=== PATIENT | female | born 1955 | race Caucasian/White ===

== ENCOUNTER 2025-01-11 20:22 | Inpatient (IN) | payer OTHER, MEDICAID ==
[~2025-01-11] VITALS: Ht 160 cm; Wt 96.5 kg
--- NOTE | 2025-01-11 20:47 | ECG ---
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
--- NOTE | 2025-01-11 21:13 | ED.PDOC ---
GI ASSESSMENT HPI Comments 69-year-old female with a past medical history of kidney stones, non insulin dependent type 2 diabetes mellitus, hypertension, hyperlipidemia and surgical history of cholecystectomy (2022) has come to the ER with chief complaints of upper abdominal pain. Patient reports epigastric pain that has been on and off since cholecystectomy, but in the past 3 days has been constant, burning in nature, 10/10 in intensity, radiating to the back, increased at night, associated with acid reflux symptoms, increased burping, nausea and 3 episodes of watery, nonbloody emesis yesterday. On inquiry, patient admits that she drinks coffee and soda drinks which might be a trigger. She also reports that she has to strain to defecate and last bowel movement was 3 days ago. Patient denies any fatty or spicy food intake, chest pain, palpitations, shortness of breath, fever, chills, urinary symptoms. Vitals on initial assessment were stable, patient is in moderate distress due to epigastric pain. Chief Complaint: Abdominal Pain Time Seen by MD: 20:32 Primary Care Provider: Dr. Pippa Mariscal Reviewed Notes: Medications, Allergies Allergies: Coded Allergies: No Known Drug Allergy (Verified Allergy, Unknown, 01/11/25) Information Source: Patient Mode of Arrival: Ambulatory Brought in by: Granddaughter Timing: Days Duration: Since onset Prehospital treatment: None Quality: Burning Vomitus: Watery Stool: Other (Constipated) Severity: Moderate Recent: None Recent Hx of: None Pain Location: Epigastric Modifying Factors: Nothing Associated sign and symptoms: Nausea, Vomiting, Constipation Past Medical History PAST MEDICAL HISTORY: DM, Gallstones, High Lipids, HTN Surgical History: Cholecystectomy [employer] History: Unknown Family History Family History: Reviewed,noncontributory to illness Social History Smoker: Non-Smoker Alcohol: Denies ETOH Use Drugs: Denies Drug Use Lives In: Home Constitutional: denies: chills, diaphoresis, fatigue, fever, malaise, sweats, weakness, others EENTM: denies: blurred vision, double vision, ear bleeding, ear discharge, ear drainage, ear pain, ear ringing, eye pain, eye redness, hearing loss, mouth pain, mouth swelling, nasal discharge, nose bleeding, nose congestion, nose pain, photophobia, tearing, throat pain, throat swelling, voice changes, others Respiratory: denies: cough, hemoptysis, orthopnea, SOB at rest, shortness of breath, SOB with excertion, stridor, wheezing, others Cardiovascular: denies: chest pain, dizzy spells, diaphoresis, Dyspnea on exertion, edema, irregular heart beat, left arm pain, lightheadedness, palpitations, PND, syncope, others Gastrointestinal: reports: abdominal pain, constipated, nausea, vomiting; denies: abdomen distended, blood streaked bowels, diarrhea, dysphagia, difficulty swallowing, hematemesis, melena, poor appetite, poor fluid intake, rectal bleeding, rectal pain, others Genitourinary: denies: abnormal vagina bleeding, burning, dyspareunia, dysuria, flank pain, frequency, hematuria, incontinence, pain, , vagina discharge, urgency, others Neurological: denies: dizziness, fainting, headache, left sided numbness, left sided weakness, numbness, paresthesia, pre-existing deficit, right sided numbness, right sided weakness, seizure, speech problems, tingling, tremors, weakness, others Musculoskeletal: denies: back pain, gout, joint pain, joint swelling, muscle pain, muscle stiffness, neck pain, others Integumetry: denies: bruises, change in color, change in hair/nails, dryness, laceration, lesions, lumps, rash, wounds, others Allergic/Immunocompromised: denies: Difficulty Healing, Frequent Infections, Hives, Itching, others Hematologic/Lymphatic: denies: anemia, blood clots, easy bleeding, easy b ruising, swollen glands, others Endocrine: denies: excessive hunger, excessive sweating, excessive thirst, excessive urination, flushing, intolerance to cold, intolerance to heat, unexplained weight gain, unexplained weight loss, others Psychiatric: denies: anxiety, bipolar disorder, depression, hopeless, panic disorder, schizophrenia, sleepless, suicidal, others Physical Exam General Appearance: Obese HEENT: PERRL/EOMI Neck: Normal, Normal Inspection Respiratory: No Respiratory Distress, Normal Breath Sounds Cardiovascular: None Breast Exam: Deferred Gastrointestinal: Epigastric, Normal Bowel Sounds, RLQ, RUQ, Tenderness Genitalia: Deferred Pelvic: Deferred Rectal: Deferred Extremities: None Neurologic: None Cerebellar Function: Normal Reflexes: Normal Skin: Normal Color Lymphatic: None Was a procedure done? Was a procedure done?: No GI differential Dx Differential Diagnosis: Constipation, Gastritis/PUD X-Ray, Labs, Meds, VS Vital Signs Date Time Temp Pulse Resp B/P (MAP) Pulse Ox O2 Delivery O2 Flow Rate FiO2 01/11/25 23:29 100.7 104 20 140/52 (81) 95 100.7 01/11/25 20:37 69 01/11/25 20:25 97.1 73 16 159/62 97 97.1 Lab Test 01/12/25 00:08 01/11/25 21:57 01/11/25 21:12 Range/Units Lactic Acid Level 2.3 *H 0.4-2.0 mmol/L Troponin I High Sensitivity 5 6 </=34 ng/L White Blood Count 9.5 4.4-10.8 10^3/uL Red Blood Count 4.14 4.0-5.20 10^6/uL Hemoglobin 12.5 12.2-16.2 g/dL Hematocrit 36.3 36.0-46.0 % Mean Corpuscular Volume 87.6 80.0-100.0 fL Mean Corpuscular Hemoglobin 30.1 28.0-32.0 pg Mean Corpuscular Hemoglobin Concent 34.4 32.0-36.0 g/dL Red Cell Distribution Width 14.4 H 11.8-14.3 % Platelet Count 226 140-450 10^3/uL Mean Platelet Volume 7.5 6.9-10.8 fL Neutrophils (%) (Auto) 80.6 H 37.0-80.0 % Lymphocytes (%) (Auto) 15.1 10.0-50.0 % Monocytes (%) (Auto) 3.0 0.0-12.0 % Eosinophils (%) (Auto) 0.9 0.0-7.0 % Basophils (%) (Auto) 0.4 0.0-2.0 % Neutrophils # (Auto) 7.7 1.6-8.6 10 ^3/uL Lymphocytes # (Auto) 1.4 0.4-5.4 10 ^3/uL Monocytes # (Auto) 0.3 0-1.3 10 ^3/uL Eosinophils # (Auto) 0.1 0-0.8 10 ^3/uL Basophils # (Auto) 0 0-0.2 10 ^3/uL Nucleated Red Blood Cells 0.2 % Sodium Level 141 136-145 mmol/L Potassium Level 3.2 L 3.5-5.1 mmol/L Chloride Level 102 98-107 mmol/L Carbon Dioxide Level 29 20-31 mmol/L Anion Gap 10 5-15 Blood Urea Nitrogen 12 9-23 mg/dL Creatinine 0.71 0.550-1.02 mg/dL Glomerular Filtration Rate Calc 93 >90 mL/min BUN/Creatinine Ratio 16.9 10.0-20.0 Serum Glucose 206 H 74-106 mg/dL Calcium Level 9.5 8.7-10.4 mg/dL Total Bilirubin 1.0 0.2-1.0 mg/dL Aspartate Amino Transferase (AST) 414 H 13-40 U/L Alanine Aminotransferase (ALT) 167 H 7-40 U/L Alkaline Phosphatase 279 H 46-116 U/L Total Protein 8.1 5.7-8.2 g/dL Albumin 4.5 3.2-4.8 g/dL Lipase 43 12-53 U/L Current Medications Medications (Trade) Dose Ordered Sig/Lea Route Start Time Stop Time Status Last Admin Pantoprazole Sodium (Protonix) 40 mg ONCE ONCE IV 01/11/25 21:00 01/11/25 21:16 DC 01/12/25 04:06 Ondansetron HCl (Zofran) 4 mg ONCE ONCE IV 01/11/25 21:00 01/11/25 21:16 DC 01/12/25 04:06 Ketorolac Tromethamine (Toradol Injection) 30 mg ONCE ONCE IV 01/11/25 21:00 01/11/25 21:16 DC 01/12/25 04:06 Potassium Chloride (Klor-Con Tablet) 40 meq ONCE ONCE PO 01/11/25 22:00 01/11/25 22:01 DC 01/12/25 04:06 Levofloxacin/ Dextrose 100 ml @ 100 mls/hr ONCE ONCE IV 01/11/25 23:45 01/12/25 00:44 DC 01/12/25 04:12 Sodium Chloride 1,000 ml @ 1,000 mls/hr Q1H ONCE IV 01/11/25 23:45 01/12/25 00:44 DC 01/12/25 03:09 Images Reviewed?: Images reviewed and evaluated by me Time of 1ST Reevaluation: 22:00 Reevaluation 1ST: Unchanged Time of 2ND Reevaluation: 23:30 Reevaluation 2ND: Worsened Patient Education/Counseling: Diagnosis, Treatment Family Education/Counseling: Diagnosis, Treatment SEPSIS Sepsis Screen Date sepsis recognized/suspect: Jan 11, 2025 Time Sepsis recognized/suspect: 2024 Recent Procedure: No On Antibiotic Therapy: No Respiratory Rate >20: No Heart Rate >90: No Temp<36 C (96.8 F) or >38.3 C: No SBP <90 or MAP <65 mmHG: No New Acute Mental Status Change: No Is the patient on CPAP, BIPAP,: No Physician Orders Urinalysis (01/11/25 20:55) Ct Ab Pel Wo Con-No Oral Or Iv (01/11/25 20:55) Chest Xray 1 View (01/11/25 20:55) Abdomen Limited (01/11/25 21:49) Blood Culture (01/11/25 23:43) Metronidazole 500mg/100ml (Flagyl 500mg/ (01/12/25 06:00) Ceftriaxone 1gm/50ml (Rocephin) (01/12/25 09:00) Ibuprofen Tablet (Motrin Tablet) (01/12/25 01:15) Glucose Blood (Accu-Chek Comfort Curve T (01/12/25 07:00) Insulin R (Human) (Insulin R) (01/12/25 22:00) Insulin R (Human) (Insulin R) (01/12/25 07:00) Dextrose 50% Syringe (01/12/25 01:15) Allergies (01/12/25 01:14) Code Status (01/12/25 01:14) Sodium Chloride Lock (Saline Lock Ns) (01/12/25 06:00) Oxygen Per Hour (01/12/25 01:14) Hydrocodone-Acet 5/325mg Tab ([place] 5/32 (01/12/25 01:15) Ondansetron Hcl (Zofran) (01/12/25 01:15) Docusate Sodium Capsule (Colace Capsule) (01/12/25 01:15) Condition: Serious (01/12/25 01:14) Bedrest With Bathroom Privileg (01/12/25 01:14) Maintain Bed Rest (01/12/25 01:14) Morphine Sulfate Injection (01/12/25 01:15) Sequential Compression Device (01/12/25 ) Vital Signs Date Time Temp Pulse Resp B/P (MAP) Pulse Ox O2 Delivery O2 Flow Rate FiO2 01/11/25 23:29 100.7 104 20 140/52 (81) 95 100.7 01/11/25 20:37 69 01/11/25 20:25 97.1 73 16 159/62 97 97.1 Laboratory Tests Test 01/11/25 21:12 01/12/25 00:08 White Blood Count 9.5 10^3/uL (4.4-10.8) Lactic Acid Level 2.3 mmol/L (0.4-2.0) *H Medications Medications Dose Ordered Sig/Lea Route Start Time Stop Time Status Last Admin Dose Admin Ketorolac Tromethamine 30 mg ONCE ONCE IV 01/11/25 21:00 01/11/25 21:16 DC 01/12/25 04:06 Levofloxacin/ Dextrose 100 ml @ 100 mls/hr ONCE ONCE IV 01/11/25 23:45 01/12/25 00:44 DC 01/12/25 04:12 Ondansetron HCl 4 mg ONCE ONCE IV 01/11/25 21:00 01/11/25 21:16 DC 01/12/25 04:06 Pantoprazole Sodium 40 mg ONCE ONCE IV 01/11/25 21:00 01/11/25 21:16 DC 01/12/25 04:06 Potassium Chloride 40 meq ONCE ONCE PO 01/11/25 22:00 01/11/25 22:01 DC 01/12/25 04:06 Sodium Chloride 1,000 ml @ 1,000 mls/hr Q1H ONCE IV 01/11/25 23:45 01/12/25 00:44 DC 01/12/25 03:09 Departure 1 Departure Time of Disposition: 00:30 Impression: Primary Impression: Acute gastritis Additional Impressions: Pericardial effusion Transaminitis Disposition: 09 ADMITTED INPATIENT Admit to: Tele Condition: Unstable Comments In the ER, EKG was done which was normal, tropes were negative. CBC was unremarkable, CMP shows transaminitis, (AST 414, ALT 167, ALP 279). Lipase level was normal: 43. A CT abdomen and pelvis showed possible acute gastritis and Small pericardial effusion. Liver ultrasound showed: Hepatic steatosis and hepatomegaly On initial assessment, given the pain and nausea, Protonix 40 mg IV, ondansetron 4 mg IV and Toradol 30 mg IV was given. Oral Potassium 40 mEq given for levels 3.2. Patient developed fever in the ER, temp 100.7, with RR 20 and HR 104 for which we started her on IV antibiotics Flagyl 500 mg, IV Levaquin 500 mg and IV NS 0.9% 1 L bolus. Lactic acid levels and Blood culture have been ordered. We are admitting the patient for treatment of acute gastritis and further workup of pericardial effusion. Attestation: I personally saw and evaluated the patient. I agree with the findings and plan of care as documented by the resident note. LAKSHMI MIRAMONTES MD Critical Care Note Critical Care Time?: No Stability Stability form required: No Heart Score Heart Score: Heart Score Response (Comments) Value History N/A 0 EKG N/A 0 Age N/A 0 Risk Factors N/A 0 Troponin N/A 0 Total 0 LUC JEFFERSON RESIDENT Jan 11, 2025 21:12 LAKSHMI MIRAMONTES MD Jan 12, 2025 04:18
[2025-01-11 21:26] LABS: Hematocrit 36.3 % (36.0-46.0); Hemoglobin 12.5 g/dL (12.2-16.2); Mean Corpuscular Hemoglobin 30.1 pg (28.0-32.0); Mean Corpuscular Volume 87.6 fL (80.0-100.0); Nucleated Red Blood Cells % 0.2 %
--- NOTE | 2025-01-11 21:29 | DVH ---
EXAM: XY CHEST XRAY 1 VIEW HISTORY: SOB TECHNIQUE: 1 view of the chest COMPARISON: None FINDINGS/IMPRESSION: LUNGS: No pleural effusion, consolidation, or pneumothorax. MEDIASTINUM: Unremarkable. BONES: No acute osseous abnormality. OTHER: None.
[2025-01-11 21:43] LABS: Albumin 4.5 g/dL (3.2-4.8); Anion Gap 10 (5-15); BUN/Creatinine Ratio 16.9 (10.0-20.0); Bilirubin, Total 1.0 mg/dL (0.2-1.0); Blood Urea Nitrogen 12 mg/dL (9-23); Calcium 9.5 mg/dL (8.7-10.4); Carbon Dioxide 29 mmol/L (20-31); Chloride 102 mmol/L (98-107); Lipase 43 U/L (12-53); Sodium 141 mmol/L (136-145); Total Protein 8.1 g/dL (5.7-8.2)
[2025-01-11 21:44] LABS: Alanine Aminotransferase 167 U/L (7-40); Alkaline Phosphatase 279 U/L (46-116); Glucose 206 mg/dL (74-106); Potassium 3.2 mmol/L (3.5-5.1)
--- NOTE | 2025-01-11 21:53 | DVH ---
EXAM: CT CT AB PEL WO CON-NO ORAL OR IV INDICATION: Severe epigastric TECHNIQUE: Volumetric multidetector CT images of the abdomen and pelvis were obtained without contrast. All CT scans at this facility use dose modulation, iterative reconstruction, and/or weight based dosing when appropriate to reduce radiation dose to as low as reasonably achievable. COMPARISON: None FINDINGS: [LOWER CHEST]: The partially visualized lung bases are clear without a pleural effusion. Normal cardiac size trace pericardial effusion. No abnormal calcification. [LIVER]: Normal hepatic size without suspicious focal lesion. [GALLBLADDER AND BILIARY TREE]: Surgically absent. [SPLEEN]: Unremarkable. [PANCREAS]: Unremarkable. [ADRENAL GLANDS]: Unremarkable [KIDNEYS]: No hydronephrosis. No nephroureterolithiasis. [BLADDER]: Unremarkable for the degree distention. [REPRODUCTIVE ORGANS]: Unremarkable. [BOWEL/MESENTERY]: Stomach distention with multiple curvilinear densities of indeterminate etiology and may be related to ingested material. Associated fluid of the stomach. Correlate for acute gastritis. No area of micro perforation or definitive ulceration allowing for limitation. No CT evidence of bowel obstruction. Mild stool burden. [ASCITES]: Absent [LYMPHADENOPATHY]: No pathologically enlarged lymph nodes by CT size criteria [VASCULATURE]: No aneurysmal dilatation. [ABDOMINAL WALL]: Unremarkable. [MUSCULOSKELETAL]: No acute fracture or aggressive focal osseous lesion. Multifocal degenerative change of the visualized spine. IMPRESSION: 1. Stomach distention with multiple curvilinear densities of indeterminate etiology and may be related to ingested material. 2. Associated fluid of the stomach. Correlate for acute gastritis. 3. No CT evidence of bowel obstruction. 4. Small pericardial effusion. No CT features to suggest constrictive morphology. 5. Normal appendix. 6. Mild stool burden.
--- NOTE | 2025-01-12 00:13 | DVH ---
INDICATION: RUQ pain, transaminitis TECHNIQUE: Multiple real-time sonographic images were obtained of the right upper quadrant. COMPARISON: None FINDINGS: The liver demonstrates diffusely increased echotexture without focal mass lesions. The liver measures 18.5 cm. Normal hepatopetal portal venous flow identified. No evidence of pleural effusion or abdominal ascites. There is no intrahepatic or extrahepatic ductal dilatation. The common duct measures 0.7 cm. The gallbladder is surgically absent. The right kidney measures 10.2 cm. The right kidney is normal in contour, size, and shape. The echogenicity is normal. There is no hydronephrosis. The pancreas is not well visualized due to overlying bowel gas. IMPRESSION: 1. Hepatic steatosis and hepatomegaly. 2. Cholecystectomy.
[2025-01-12] MEDS ORDERED: MORPHINE SULFATE INJ 2 MG/ml SYRG IV PRN ×2 (01:15→02:45)
[2025-01-12] MEDS ORDERED: ONDANSETRON HCL 4 MG/2 ML VIAL IV PRN (01:15)
[2025-01-12] MEDS ORDERED: IBUPROFEN 600 MG TAB PO PRN (01:15)
[2025-01-12] MEDS ORDERED: DEXTROSE (50%) 50ML SYRG IV PRN (01:15)
[2025-01-12 01:18] LABS: Lactic Acid w/Reflex 2.3 mmol/L (0.4-2.0)
[2025-01-12] MEDS ORDERED: NITROGLYCERIN 0.4 MG SL TAB SL PRN (02:45)
--- NOTE | 2025-01-12 02:45 | DVHHP2 ---
History of Present Illness Reason for Visit: Acute gastritis History of Present Illness The patient is a 69-year-old female with past medical history of gallstones, hyperlipidemia, hypertension, and diabetes mellitus who presented to [facility] ED with complaint of acute abdominal pain. Patient reports that she has been experiencing intermittent epigastric abdominal pain since cholecystectomy, but in the past three days it has been constant, burning in nature, rating 10/10 in intensity, radiating to her back, associated with increased burping, acid reflux symptoms, constipation symptoms, nausea, and 3 episodes of watery nonbloody emesis. Patient was seen and evaluated in the ED, laboratory data shows WBC 9.5, platelets 226, sodium 141, potassium 3.2, BUN 12, creatinine 0.71, GFR 93, glucose 206, calcium 9.5, lipase 43, AST 414, ALT 167, total bilirubin 1.0, alkaline phos 279, troponin 5, blood pressure 140/52, heart rate 104, temperature 100.7 F, O2 saturation 96% on room air. Abdomen/pelvis CT revealing stomach distention with multiple call revealing curvilinear densities of indeterminate etiology and may be related to ingested material; associated fluid of the stomach; correlate for acute gastritis; small pericardial effusion. Single organ ultrasound revealing hepatic steatosis hepatomegaly; cholecystectomy. Patient was started on IV antibiotic regimen Flagyl, please see medication orders section in the computer. On my assessment, patient denied chest pain, no dizziness, headache, diaphoresis, shortness of breaths, no abdominal pain, diarrhea, nausea, or vomiting at this moment, no fever, chills. Patient was admitted for further evaluation and medical management. Past Medical History DM, Gallstones, High Lipids, HTN Past Surgical History Cholecystectomy (2022) Family History Reviewed, noncontributory to the management of this case. Past Social History The patient lives at home, denies smoking, alcohol or illicit drugs abuse. Review of Systems Constitutional: Yes: Weakness; No: Fever, Chills, Sweats, Malaise, Other Eyes: No: Pain, Vision change, Conjunctivae inflammation, Eyelid inflammation, Other, Redness ENT: No: Ear pain, Ear discharge, Nose pain, Nose discharge, Nose congestion, Mouth pain, Mouth swelling, Throat pain, Throat swelling, Other Respiratory: No: Cough, Dry, Shortness of breath, SOB with excertion, Wheezing, Hemoptysis, Pleuritic Pain, Sputum, Wheezing, Other Cardiovascular: No: Chest Pain, Palpitations, Orthopnea, Paroxysmal Noc. Dyspnea, Edema, Lt Headedness, Other Gastrointestinal: Nausea, Vomiting, Abdominal Pain, Constipation; No: Diarrhea, Melena, Hematochezia, Other Genitourinary: No Dysuria, No Frequency, No Incontinence, No Hematuria, No Retention, No Other Musculoskeletal: No: other, neck pain, shoulder pain, arm pain, back pain, hand pain, leg pain, foot pain Skin: No: Rash, Lesions, Jaundice, Bruising, Other Neurological: No: Weakness, Numbness, Incoordination, Change in speech, Confusion, Seizures, Other Allergies: Coded Allergies: No Known Drug Allergy (Verified Allergy, Unknown, 01/11/25) Medications Current Medications Medications Dose Ordered Sig/Lea Route Start Time Stop Time Status Last Admin Dose Admin Nitroglycerin 0.4 mg Q5MINP PRN SL 01/12/25 02:45 UNV Morphine Sulfate 2 mg Q30M PRN IV 01/12/25 02:45 UNV Exam Vital Signs Vital Signs Date Time Temp Pulse Resp B/P (MAP) Pulse Ox O2 Delivery O2 Flow Rate FiO2 01/11/25 23:29 100.7 104 20 140/52 (81) 95 100.7 General Appearance: Alert, Oriented X3, Cooperative, No acute distress HEENT: Atraumatic, PERRLA, EOMI, Mucous membr. moist/pink Respiratory: Normal air movement Cardiovascular: Regular rate, Normal S1, Normal S2, No murmurs Abdominal: Normal bowel sounds, Soft, No hepatospenomegaly, No masses, Other (Reports tenderness) Extremities: No clubbing, No cyanosis, No edema, Normal pulses, No tenderness/swelling Skin: No rashes, No significant lesion Neuro: Normal speech, Normal tone, Sensation intact, Cranial nerves 3-12 NL, Reflexes 2+, Other (Generalized weakness) Psych/Mental Status: Mental status NL, Mood NL Labs/Xrays Labs Test 01/12/25 00:08 01/11/25 21:57 01/11/25 21:12 Range/Units Lactic Acid Level 2.3 *H 0.4-2.0 mmol/L Troponin I High Sensitivity 5 </=34 ng/L White Blood Count 9.5 4.4-10.8 10^3/uL Red Blood Count 4.14 4.0-5.20 10^6/uL Hemoglobin 12.5 12.2-16.2 g/dL Hematocrit 36.3 36.0-46.0 % Mean Corpuscular Volume 87.6 80.0-100.0 fL Mean Corpuscular Hemoglobin 30.1 28.0-32.0 pg Mean Corpuscular Hemoglobin Concent 34.4 32.0-36.0 g/dL Red Cell Distribution Width 14.4 H 11.8-14.3 % Platelet Count 226 140-450 10^3/uL Mean Platelet Volume 7.5 6.9-10.8 fL Neutrophils (%) (Auto) 80.6 H 37.0-80.0 % Lymphocytes (%) (Auto) 15.1 10.0-50.0 % Monocytes (%) (Auto) 3.0 0.0-12.0 % Eosinophils (%) (Auto) 0.9 0.0-7.0 % Basophils (%) (Auto) 0.4 0.0-2.0 % Neutrophils # (Auto) 7.7 1.6-8.6 10 ^3/uL Lymphocytes # (Auto) 1.4 0.4-5.4 10 ^3/uL Monocytes # (Auto) 0.3 0-1.3 10 ^3/uL Eosinophils # (Auto) 0.1 0-0.8 10 ^3/uL Basophils # (Auto) 0 0-0.2 10 ^3/uL Nucleated Red Blood Cells 0.2 % Sodium Level 141 136-145 mmol/L Potassium Level 3.2 L 3.5-5.1 mmol/L Chloride Level 102 98-107 mmol/L Carbon Dioxide Level 29 20-31 mmol/L Anion Gap 10 5-15 Blood Urea Nitrogen 12 9-23 mg/dL Creatinine 0.71 0.550-1.02 mg/dL Glomerular Filtration Rate Calc 93 >90 mL/min BUN/Creatinine Ratio 16.9 10.0-20.0 Serum Glucose 206 H 74-106 mg/dL Calcium Level 9.5 8.7-10.4 mg/dL Total Bilirubin 1.0 0.2-1.0 mg/dL Aspartate Amino Transferase (AST) 414 H 13-40 U/L Alanine Aminotransferase (ALT) 167 H 7-40 U/L Alkaline Phosphatase 279 H 46-116 U/L Total Protein 8.1 5.7-8.2 g/dL Albumin 4.5 3.2-4.8 g/dL Lipase 43 12-53 U/L PATIENT: THOM GREGORIO ACCT: [id number] UNIT: [id number] : 1955 LOC: ER ROOM / BED: / AGE / SEX: 69 / F ADM STATUS: REG ER SERVICE 54 ORDERING PHYSICIAN: LUC JEFFERSON RESIDENT PROCEDURE(s): ABPL - CT AB PEL WO CON-NO ORAL OR IV REASON: Severe epigastric ORDER NUMBER(s): [id number], ACCESSION NUMBER(s): [id number] EXAM: CT CT AB PEL WO CON-NO ORAL OR IV INDICATION: Severe epigastric TECHNIQUE: Volumetric multidetector CT images of the abdomen and pelvis were obtained without contrast. All CT scans at this facility use dose modulation, it erative reconstruction, and/or weight based dosing when appropriate to reduce radiation dose to as low as reasonably achievable. COMPARISON: None FINDINGS: [LOWER CHEST]: The partially visualized lung bases are clear without a pleural effusion. Normal cardiac size trace pericardial effusion. No abnormal calcification. [LIVER]: Normal hepatic size without suspicious focal lesion. [GALLBLADDER AND BILIARY TREE]: Surgically absent. [SPLEEN]: Unremarkable. [PANCREAS]: Unremarkable. [ADRENAL GLANDS]: Unremarkable [KIDNEYS]: No hydronephrosis. No nephroureterolithiasis. [BLADDER]: Unremarkable for the degree distention. [REPRODUCTIVE ORGANS]: Unremarkable. [BOWEL/MESENTERY]: Stomach distention with multiple curvilinear densities of indeterminate etiology and may be related to ingested material. Associated fluid of the stomach. Correlate for acute gastritis. No area of micro perforation or definitive ulceration allowing for limitation. No CT evidence of bowel obstruction. Mild stool burden. [ASCITES]: Absent [LYMPHADENOPATHY]: No pathologically enlarged lymph nodes by CT size criteria [VASCULATURE]: No aneurysmal dilatation. [ABDOMINAL WALL]: Unremarkable. [MUSCULOSKELETAL]: No acute fracture or aggressive focal osseous lesion. Multifocal degenerative change of the visualized spine. IMPRESSION: 1. Stomach distention with multiple curvilinear densities of indeterminate etiology and may be related to ingested material. 2. Associated fluid of the stomach. Correlate for acute gastritis. 3. No CT evidence of bowel obstruction. 4. Small pericardial effusion. No CT features to suggest constrictive morphology. 5. Normal appendix. 6. Mild stool burden. ORDERING PHYSICIAN: LUC JEFFERSON PROCEDURE(s): ABDL - ABDOMEN LIMITED REASON: RUQ pain, transaminitis ORDER NUMBER(s): [id number], ACCESSION NUMBER(s): [id number] INDICATION: RUQ pain, transaminitis TECHNIQUE: Multiple real-time sonographic images were obtained of the right upper quadrant. COMPARISON: None FINDINGS: The liver demonstrates diffusely increased echotexture without focal mass lesions. The liver measures 18.5 cm. Normal hepatopetal portal venous flow identified. No evidence of pleural effusion or abdominal ascites. There is no intrahepatic or extrahepatic ductal dilatation. The common duct measures 0.7 cm. The gallbladder is surgically absent. The right kidney measures 10.2 cm. The right kidney is normal in contour, size, and shape. The echogenicity is normal. There is no hydronephrosis. The pancreas is not well visualized due to overlying bowel gas. IMPRESSION: 1. Hepatic steatosis and hepatomegaly. 2. Cholecystectomy. ORDERING PHYSICIAN: LUC JEFFERSON PROCEDURE(s): CXR1 - CHEST XRAY 1 VIEW REASON: SOB ORDER NUMBER(s): [id number], ACCESSION NUMBER(s): [id number] EXAM: XY CHEST XRAY 1 VIEW HISTORY: SOB TECHNIQUE: 1 view of the chest COMPARISON: None FINDINGS/IMPRESSION: LUNGS: No pleural effusion, consolidation, or pneumothorax. MEDIASTINUM: Unremarkable. BONES: No acute osseous abnormality. OTHER: None. SEPSIS Sepsis Screen Date sepsis recognized/suspect: Jan 11, 2025 Time Sepsis recognized/suspect: 2024 Recent Procedure: No On Antibiotic Therapy: No Respiratory Rate >20: No Heart Rate >90: No Temp<36 C (96.8 F) or >38.3 C: No SBP <90 or MAP <65 mmHG: No New Acute Mental Status Change: No Is the patient on CPAP, BIPAP,: No Physician Orders Urinalysis (01/11/25 20:55) Ct Ab Pel Wo Con-No Oral Or Iv (01/11/25 20:55) Chest Xray 1 View (01/11/25 20:55) Abdomen Limited (01/11/25 21:49) Blood Culture (01/11/25 23:43) Code Status (01/12/25 01:14) Oxygen Per Hour (01/12/25 01:14) Admit (01/12/25 02:42) Nitroglycerin Sublingual (Ntrostat Subli (01/12/25 02:45) Morphine Sulfate Injection (01/12/25 02:45) Stat Ekg For Chest Pain (01/12/25 02:42) Notify Of Changes From Base (01/12/25 02:42) Theatrical Trouper For 24 Hours (01/12/25 02:42) Emergency Dysrhythmia Protocol (01/12/25 02:42) Rhythm Strips Once Every Shift (01/12/25 02:42) Oxygen By Nasal Cannula (01/12/25 02:42) * Cardiology Consult (01/12/25 02:44) * [facility]st (01/12/25 02:44) Vital Signs Date Time Temp Pulse Resp B/P (MAP) Pulse Ox O2 Delivery O2 Flow Rate FiO2 01/11/25 23:29 100.7 104 20 140/52 (81) 95 100.7 01/11/25 20:37 69 01/11/25 20:25 97.1 73 16 159/62 97 97.1 Laboratory Tests Test 01/11/25 21:12 01/12/25 00:08 White Blood Count 9.5 10^3/uL (4.4-10.8) Lactic Acid Level 2.3 mmol/L (0.4-2.0) *H Assessment/Plan Assessment/Plan Acute gastritis Pericardial effusion Transaminitis Acute abdominal pain Elevated liver enzymes Diabetes mellitus with hyperglycemia Generalized weakness Plan 1. Admit to telemetry unit 2. Breathing treatment 3. Pain control management 4. IV antibiotic management 5. Management of fluids and electrolytes 6. Consultation for Cardiology/GI 7. Diagnostic test abdomen/pelvis CT 8. DVT prophylaxis-on SCDs 9. Repeat labs CBC, CMP in a.m. 10. Home medication reviewed and reconciled 11. Continue with current medical management 12. Treatment plan discussed with patient/daughter and RN. Patient/daughter verbalized understanding. Plan discussed with: Patient, Other (RN) My Orders Orders - NIESHA HERRMANN DNP Procedure Category Date Status Time Code Status CODE 01/12/25 Transmitted 01:14 Oxygen Per Hour RT 01/12/25 Transmitted 01:14 Admit ADMIT 01/12/25 Transmitted 02:42 Nitroglycerin [facility] 01/12/25 Logged Sublingual (Ntrostat 02:45 Morphine Sulfate [facility] 01/12/25 Logged Injection 02:45 Stat Ekg For Chest [facility] 01/12/25 In Process Pain 02:42 Notify Md Of Changes [facility] 01/12/25 In Process From Base 02:42 Theatrical Trouper For [facility] 01/12/25 In Process 24 Hours 02:42 Emergency Dysrhythmia [facility] 01/12/25 In Process Protocol 02:42 Rhythm Strips Once [facility] 01/12/25 In Process Every Shift 02:42 Oxygen By Nasal RT 01/12/25 Transmitted Cannula 02:42 * Cardiology Consult [facility] 01/12/25 Verified 02:44 * [facility] CONS 01/12/25 Verified 02:44 Problem List: (1) Acute gastritis (2) Pericardial effusion (3) Transaminitis (4) Acute abdominal pain (5) Elevated liver enzymes (6) Diabetes mellitus with hyperglycemia (7) Generalized weakness Date of Service: Jan 12, 2025 Billing Provider: NIESHA HERRMANN DNP Common Visit Codes: [id number] INP/OBS CARE (HIGH) NIESHA HERRMANN DNP Jan 12, 2025 02:45
[2025-01-12] MEDS: SODIUM CHLORIDE 0.9% 1,000 ML IV ONE (03:09)
[2025-01-12] MEDS: POTASSIUM CHL 20 Meq TABLET PO ONE (04:06)
[2025-01-12] MEDS: PANTOPRAZOLE 40 MG/10 ML VIAL INJ IV ONE (04:06)
[2025-01-12] MEDS: KETOROLAC TROMETH 30 MG/ML 1ML VIAL IV ONE (04:06)
[2025-01-12] MEDS: ONDANSETRON HCL 4 MG/2 ML VIAL IV ONE (04:06)
[2025-01-12] MEDS: SODIUM CHLOR 0.9% PF (SALINE LOCK) 10ML VIAL/SYR IV SCH (06:00)
[2025-01-12 06:21] VITALS: BP 117/38; PULSE 75; RESP 16; TEMP 98.1; O2SAT 95
[2025-01-12] MEDS: ACCU-CHEK COMFORT CURVE STRIP VI SCH (06:36)
[2025-01-12] MEDS: InsuLIN REG 1unit/0.01ml Soln (100units/ml) ONE (06:42)
[2025-01-12] MEDS: InsuLIN REG 1unit/0.01ml Soln (100units/ml) SC SCH ×2 (06:42→21:14)
[2025-01-12] MEDS: cefTRIAXone SOD 1,000 MG VL ONE (08:31)
[2025-01-12] MEDS: PANTOPRAZOLE 40 MG/10 ML VIAL INJ IV SCH (08:45)
[2025-01-12 08:47] LABS: Urine Protein, UAD TRACE (Negative)
[2025-01-12 09:00] VITALS: BP 114/39; PULSE 77; RESP 17; TEMP 97.7; O2SAT 97
--- NOTE | 2025-01-12 10:09 | DVHINCON2 ---
Date Seen: Jan 12, 2025 Referring Physician JIMY Stafford Reason for Consultation Pericardial effusion History of Present Illness This is a pleasant B[place]ian-speaking 69-year-old female patient who presents to the emergency room with chief complaint of worsening abdominal pain. The patient reports that she has been experiencing abdominal pain as well as nausea, vomiting and constipation for four days prior to emergency room arrival. Cardiology is being consulted at this time for incidental pericardial effusion finding on abdomen/pelvis CT. A twelve lead electrocardiogram found in patient's chart reveals normal sinus rhythm without any significant ST segment changes and artifact in multiple leads. The patient denies any cardiac symptoms such as chest pain, palpitations, shortness of breath, or dizziness. Initial troponin level of 6ng/L. Significant past medical history includes hypertension, dyslipidemia, type 2 diabetes mellitus, and obesity. Past Medical History Past medical history reviewed. No other significant than mentioned above. Past Surgical History Cholecystectomy in 2022 Left shoulder ligament repair Family History Family history reviewed. Social History Denies the use of tobacco, alcohol or illicit drugs. Allergies: Coded Allergies: No Known Drug Allergy (Verified Allergy, Unknown, 01/11/25) Home Meds Home medications reviewed. Current Medications Current Medications Medications (Trade) Dose Ordered Sig/Lea Route PRN Reason Start Time Stop Time Status Last Admin Metronidazole 100 ml @ 100 mls/hr Q8HR IV 01/12/25 06:00 01/12/25 06:33 Ceftriaxone Sodium 50 ml @ 100 mls/hr DAILY@09 IV 01/12/25 09:00 01/12/25 08:45 Ibuprofen (Motrin Tablet) 600 mg Q6HP PRN PO PAIN SCALE 1-3 OR TEMP>100.4 01/12/25 01:15 Diagnostic Test (Pha) (Accu-Chek Comfort Curve T) 1 strip ACHS 01/12/25 07:00 01/12/25 06:36 Insulin Human Regular (InsuLIN R) HS SC 01/12/25 22:00 Insulin Human Regular (InsuLIN R) AC SC 01/12/25 07:00 01/12/25 06:42 Dextrose 50 ml UD PRN IV Blood Sugar LESS THAN 60 01/12/25 01:15 Sodium Chloride (Saline Lock Ns) 10 ml Q8HR IV 01/12/25 06:00 01/12/25 06:00 Acetaminophen/ Hydrocodone Bitart (Nelson 5/325MG Tab) 1 tab Q4HP PRN PO MODERATE PAIN (4-6 PAIN SCALE) 01/12/25 01:15 Ondansetron HCl (Zofran) 4 mg Q4HP PRN IV NAUSEA / VOMITING 01/12/25 01:15 Docusate Sodium (Colace Capsule) 100 mg BIDPRN PRN PO FOR CONSTIPATION 01/12/25 01:15 Morphine Sulfate 2 mg Q4HPRN PRN IV SEVERE PAIN (7-10 PAIN SCALE) 01/12/25 01:15 Nitroglycerin (Ntrostat Sublingual) 0.4 mg Q5MINP PRN SL FOR CHEST PAIN 01/12/25 02:45 Morphine Sulfate 2 mg Q30M PRN IV FOR CHEST PAIN 01/12/25 02:45 Pantoprazole Sodium (Protonix) 40 mg DAILY IV 01/12/25 10:00 01/12/25 08:45 Review of Systems Constitutional: No symptom reported Ears, Nose, & Throat: No symptom reported Eyes: No symptom reported Neurological: No symptoms reported Pulmonary/Respiratory: No symptoms reported Cardiovascular: No symptom reported Gastrointestinal: Abdominal pain, nausea, vomiting, constipation Genitourinary: No symptom reported Musculoskeletal: No symptom reported Skin: No symptom reported Psychiatric: No symptom reported Endocrine: No symptom reported Hematologic/Lymphatic: No symptom reported Vital Signs Vital Signs Date Time Temp Pulse Resp B/P (MAP) Pulse Ox O2 Delivery O2 Flow Rate FiO2 01/12/25 09:00 97.7 77 17 114/39 (64) 97 97.7 Physical Exam General Appearance: Cooperative. Morbidly obese Pulmonary/Respiratory: Clear, bilateral breaths sounds. Cardiovascular/Chest: Regular rate and rhythm. Peripheral Pulses: 2+ Radial (R). 2+ Radial (L). 2+ Pedal (R). 2+ Pedal (L) Abdominal Exam: Normal bowel sounds. Ankle Exam: Negative ankle edema Lower extremities: Negative lower extremity edema Neuro/Mental Status: A/OX4, coherent. Thoughts/Psych: Normal thought pattern. Appropriate mood and affect. Good judgment and insight. Appearance: No acute distress. Skin Exam: Normal inspection. Normal color. Warm and dry. Labs/Diagnostic Data Labs Test 01/12/25 08:30 01/12/25 07:45 01/12/25 06:38 01/11/25 21:57 Range/Units Lactic Acid Level 1.8 0.4-2.0 mmol/L Urine Color Dark-yellow Yellow Urine Clarity Clear Clear Urine pH 7.0 5.0-9.0 Urine Specific [place] 1.021 1.001-1.035 Urine Protein Trace H Negative Urine Ketones Trace Negative Urine Blood Negative Negative /uL Urine Nitrite Negative Negative Urine Bilirubin 1+ H Negative Urine Urobilinogen >1.050 Negative mg/dL Urine Leukocyte Esterase Negative Negative /uL Urine RBC 1 0 - 4 /hpf Urine Microscopic WBC 4 0-5 /HPF Urine Squamous Epithelial Cells Few <5 /hpf Urine Bacteria None seen None Seen /hpf Urine Mucus Few None Seen Urine Glucose Trace Normal mg/dL POC Glucose 167 H 70-106 mg/dl Troponin I High Sensitivity 5 </=34 ng/L Test 01/11/25 21:12 Range/Units White Blood Count 9.5 4.4-10.8 10^3/uL Red Blood Count 4.14 4.0-5.20 10^6/uL Hemoglobin 12.5 12.2-16.2 g/dL Hematocrit 36.3 36.0-46.0 % Mean Corpuscular Volume 87.6 80.0-100.0 fL Mean Corpuscular Hemoglobin 30.1 28.0-32.0 pg Mean Corpuscular Hemoglobin Concent 34.4 32.0-36.0 g/dL Red Cell Distribution Width 14.4 H 11.8-14.3 % Platelet Count 226 140-450 10^3/uL Mean Platelet Volume 7.5 6.9-10.8 fL Neutrophils (%) (Auto) 80.6 H 37.0-80.0 % Lymphocytes (%) (Auto) 15.1 10.0-50.0 % Monocytes (%) (Auto) 3.0 0.0-12.0 % Eosinophils (%) (Auto) 0.9 0.0-7.0 % Basophils (%) (Auto) 0.4 0.0-2.0 % Neutrophils # (Auto) 7.7 1.6-8.6 10 ^3/uL Lymphocytes # (Auto) 1.4 0.4-5.4 10 ^3/uL Monocytes # (Auto) 0.3 0-1.3 10 ^3/uL Eosinophils # (Auto) 0.1 0-0.8 10 ^3/uL Basophils # (Auto) 0 0-0.2 10 ^3/uL Nucleated Red Blood Cells 0.2 % Sodium Level 141 136-145 mmol/L Potassium Level 3.2 L 3.5-5.1 mmol/L Chloride Level 102 98-107 mmol/L Carbon Dioxide Level 29 20-31 mmol/L Anion Gap 10 5-15 Blood Urea Nitrogen 12 9-23 mg/dL Creatinine 0.71 0.550-1.02 mg/dL Glomerular Filtration Rate Calc 93 >90 mL/min BUN/Creatinine Ratio 16.9 10.0-20.0 Serum Glucose 206 H 74-106 mg/dL Calcium Level 9.5 8.7-10.4 mg/dL Total Bilirubin 1.0 0.2-1.0 mg/dL Aspartate Amino Transferase (AST) 414 H 13-40 U/L Alanine Aminotransferase (ALT) 167 H 7-40 U/L Alkaline Phosphatase 279 H 46-116 U/L Total Protein 8.1 5.7-8.2 g/dL Albumin 4.5 3.2-4.8 g/dL Lipase 43 12-53 U/L Assessment Pericardial effusion Rule out structural heart disease Acute gastritis Hypertension Dyslipidemia Type 2 diabetes mellitus Transaminitis Hypokalemia Morbid obesity Plan/Recommendation We will continue with the following plan/recommendations (Dr. Van): An abdominal CT incidentally reveals a small pericardial effusion with no CT features to suggest constrictive morphology. We will proceed with obtaining a transthoracic echocardiogram for further evaluation. At this time, the patient is hemodynamically stable without any signs of tamponade. The patient is stable at time of assessment. Continue with close cardiac surveillance and notify cardiology team immediately for any ECG changes or changes in patient's hemodynamics. Thank you for allowing us to care for this patient. Please call with any questions or concerns. Critical care time spent: 44 minutes This medical document was created using an electronic medical record system with voice recognition software and computerized dictation system. Although this document has been carefully reviewed, there might still be some phonetic and typographical errors. Occasional wrong-word or ``sound-alike substitutions may have occurred due to the inherent limitations of voice recognition software. These areas are purely typographical due to imperfections of the software programs and do not reflect any compromise in the patient's medical care. Please read the chart carefully and recognize, using context, where these subst itutions have occurred. Plan discussed with: Patient NYHA Physical activity limitations: NA Date of Service: Jan 12, 2025 Billing Provider: GAUTAM HANNA Cardiology Common Codes: [id number] INP/OBS CARE (High) Cardiology Consultation Codes: [id number] CONSULT <45MIN GAUTAM HANNA Jan 12, 2025 10:09
[2025-01-12 10:46] LABS: Hematocrit 33.4 % (36.0-46.0); Hemoglobin 11.3 g/dL (12.2-16.2); Mean Corpuscular Hemoglobin 29.6 pg (28.0-32.0); Mean Corpuscular Volume 87.9 fL (80.0-100.0); Nucleated Red Blood Cells % 0.1 %
[2025-01-12 10:55] LABS: Chloride 103 mmol/L (98-107); Sodium 142 mmol/L (136-145)
[2025-01-12 10:56] LABS: Anion Gap 11 (5-15); Calcium 9.1 mg/dL (8.7-10.4); Carbon Dioxide 28 mmol/L (20-31)
[2025-01-12 10:58] LABS: Potassium 3.5 mmol/L (3.5-5.1)
[2025-01-12 11:01] LABS: BUN/Creatinine Ratio 16.7 (10.0-20.0); Blood Urea Nitrogen 15 mg/dL (9-23); Triglycerides 55 mg/dL (< 150)
[2025-01-12 11:03] LABS: Cholesterol 107 mg/dL (< 200); HDL Cholesterol 45 mg/dL (40-59)
[2025-01-12 11:13] LABS: Glucose 169 mg/dL (74-106); Magnesium 1.5 mg/dL (1.6-2.6)
[2025-01-12] MEDS ORDERED: ATOR10TA PO (12:13)
[2025-01-12] MEDS ORDERED: LISI2.5T47 PO (12:13)
[2025-01-12] MEDS ORDERED: ACET500T58 PO (12:13)
[2025-01-12] MEDS ORDERED: GLIP5TAB21 PO (12:13)
[2025-01-12] MEDS ORDERED: SEMA7TAB2 PO (12:13)
[2025-01-12] MEDS: MAGNESIUM SULFATE 1GM/100ML 100 ML IV SCH (13:37)
[2025-01-12 17:00] VITALS: BP 109/39
[2025-01-12 17:40] VITALS: BP 122/69; PULSE 66; RESP 14; RESP 18; TEMP 97.8; O2SAT 96
[2025-01-12] MEDS: HYDROcodone-ACET 5/325MG TAB ONE (17:53)
[2025-01-12] MEDS: HYDROcodone-ACET 5/325MG TAB PO PRN (17:55)
[2025-01-12 20:00] VITALS: PULSE 83; RESP 18; O2SAT 95
[2025-01-12 21:00] VITALS: BP 93/46; PULSE 74; RESP 17; TEMP 98.1; O2SAT 90
[2025-01-13] VITALS (8 sets, daily range): BP systolic 91–140; BP diastolic 49–77; PULSE 48–80; RESP 16–19; TEMP 97.6–98.1; O2SAT 96–99
[2025-01-13 11:26] LABS: Hematocrit 35.0 % (36.0-46.0); Hemoglobin 11.8 g/dL (12.2-16.2); Mean Corpuscular Hemoglobin 29.8 pg (28.0-32.0); Mean Corpuscular Volume 88.3 fL (80.0-100.0); Nucleated Red Blood Cells % 0.1 %
[2025-01-13] MEDS: InsuLIN REG 1unit/0.01ml Soln (100units/ml) ONE ×2 (11:38→22:17)
[2025-01-13 11:41] LABS: INR 1.2 (0.9-1.15); Prothrombin Time 12.5 sec (9.3-11.8)
[2025-01-13 12:18] LABS: Albumin 4.1 g/dL (3.2-4.8); Anion Gap 10 (5-15); BUN/Creatinine Ratio 7.5 (10.0-20.0); Calcium 9.1 mg/dL (8.7-10.4); Carbon Dioxide 28 mmol/L (20-31); Chloride 102 mmol/L (98-107); Magnesium 1.8 mg/dL (1.6-2.6); Sodium 140 mmol/L (136-145); Total Protein 7.5 g/dL (5.7-8.2)
[2025-01-13 12:20] LABS: Alanine Aminotransferase 496 U/L (7-40); Alkaline Phosphatase 267 U/L (46-116); Bilirubin, Total 3.3 mg/dL (0.2-1.0); Blood Urea Nitrogen 6 mg/dL (9-23); Glucose 155 mg/dL (74-106); Potassium 3.3 mmol/L (3.5-5.1)
--- NOTE | 2025-01-13 12:48 | DVHPN2 ---
Subjective She is doing better now She had nausea and vomiting on admission She has long history of heartburn and acid reflux Changes from previous H/P or p: Changes Eyes: No Pain, No Vision change, No Conjunctivae inflammation, No Eyelid inflammation, No Other, No Redness ENT: No Ear pain, No Ear discharge, No Nose pain, No Nose discharge, No Nose congestion, No Mouth pain, No Mouth swelling, No Throat pain, No Throat swelling, No Other Cardiovascular: No Chest Pain, No Palpitations, No Orthopnea, No Paroxysmal Noc. Dyspnea, No Edema, No Lt Headedness, No Other Respiratory: No Cough, No Dry, No Shortness of breath, No SOB with excertion, No Wheezing, No Hemoptysis, No Pleuritic Pain, No Sputum, No Other Gastrointestinal: Nausea, Vomiting, Abdominal Pain; No Diarrhea; Constipation; No Melena, No Hematochezia, No Other Genitourinary: No Dysuria, No Frequency, No Incontinence, No Hematuria, No Retention, No Other Musculoskeletal: No other, No neck pain, No shoulder pain, No arm pain, No back pain, No hand pain, No leg pain, No foot pain Skin: No Rash, No Lesions, No Jaundice, No Bruising, No Other Objective Vitals Vital Signs Date Time Temp Pulse Resp B/P (MAP) Pulse Ox O2 Delivery O2 Flow Rate FiO2 01/13/25 09:00 97.9 64 19 102/49 (66) 99 97.9 01/13/25 08:00 Room Air* 0 21 Intake/Output Intake and Output 01/13/25 07:00 Intake Total 1050 ml Balance 1050 ml Intake Oral 850 ml IV Total 200 ml # Voids 1 General Appearance: Alert, Oriented X3, Cooperative Lungs: Clear to auscultation, Normal air movement Cardiovascular: Regular rate, Normal S1, Normal S2 Abdomen: Normal bowel sounds, Soft, No tenderness Extremities: No edema Medications Current Medications Medications Dose Ordered Sig/Lea Route Start Time Stop Time Status Last Admin Dose Admin Metronidazole 100 ml @ 100 mls/hr Q8HR IV 01/12/25 06:00 01/13/25 06:40 100 MLS/HR Ceftriaxone Sodium 50 ml @ 100 mls/hr DAILY@09 IV 01/12/25 09:00 01/13/25 09:18 100 MLS/HR Ibuprofen 600 mg Q6HP PRN PO 01/12/25 01:15 Diagnostic Test (Pha) 1 strip ACHS 01/12/25 07:00 01/13/25 11:41 1 STRIP Insulin Human Regular HS SC 01/12/25 22:00 Insulin Human Regular AC SC 01/12/25 07:00 01/13/25 11:40 2 UNITS Dextrose 50 ml UD PRN IV 01/12/25 01:15 Sodium Chloride 10 ml Q8HR IV 01/12/25 06:00 01/13/25 06:40 10 ML Acetaminophen/ Hydrocodone Bitart 1 tab Q4HP PRN PO 01/12/25 01:15 01/12/25 17:55 1 TAB Ondansetron HCl 4 mg Q4HP PRN IV 01/12/25 01:15 Docusate Sodium 100 mg BIDPRN PRN PO 01/12/25 01:15 Morphine Sulfate 2 mg Q4HPRN PRN IV 01/12/25 01:15 Nitroglycerin 0.4 mg Q5MINP PRN SL 01/12/25 02:45 Morphine Sulfate 2 mg Q30M PRN IV 01/12/25 02:45 Pantoprazole Sodium 40 mg DAILY IV 01/12/25 10:00 01/13/25 09:18 40 MG Laboratory Results Laboratory Tests 01/13/25 11:06 Chemistry Test 01/13/25 11:06 Albumin 4.1 g/dL (3.2-4.8) Calcium Level 9.1 mg/dL (8.7-10.4) Magnesium Level 1.8 mg/dL (1.6-2.6) Total Protein 7.5 g/dL (5.7-8.2) Coagulation Test 01/13/25 11:06 Prothrombin Time 12.5 sec (9.3-11.8) H Prothrombin Time INR 1.20 (0.9-1.15) H LFT Test 01/13/25 11:06 Alanine Aminotransferase (ALT) 496 U/L (7-40) H Alkaline Phosphatase 267 U/L (46-116) H Aspartate Amino Transferase (AST) 352 U/L (13-40) H Total Bilirubin 3.3 mg/dL (0.2-1.0) H Urinalysis Test 01/12/25 07:45 Urine Color Dark-yellow (Yellow) Urine Clarity Clear (Clear) Urine pH 7.0 (5.0-9.0) Urine Specific [place] 1.021 (1.001-1.035) Urine Protein Trace (Negative) H Urine Ketones Trace (Negative) Urine Blood Negative /uL (Negative) Urine Nitrite Negative (Negative) Urine Bilirubin 1+ (Negative) H Urine Urobilinogen >1.050 mg/dL (Negative) Urine Leukocyte Esterase Negative /uL (Negative) Urine RBC 1 /hpf (0 - 4) Urine Microscopic WBC 4 /HPF (0-5) Urine Squamous Epithelial Cells Few /hpf (<5) Urine Bacteria None seen /hpf (None Seen) Urine Mucus Few (None Seen) Urine Glucose Trace mg/dL (Normal) Microbiology Microbiology Date/Time Source Procedure Growth Status 01/12/25 00:13 Blood Blood Culture - Preliminary NO GROWTH AFTER 24 HOURS OF INCUBATION. Resulted Assessment/Plan Assessment/Plan Acute gastritis Pericardial effusion Hypertension Mixed hyperlipidemia Type 2 diabetes Transaminitis Hypokalemia Morbid obesity Plan IV Protonix GI consult Discontinue ibuprofen Possible EGD by GI Plan discussed with: Patient Date of Service: Jan 13, 2025 Billing Provider: RUMA VENTURA MD Common Visit Codes: NOT BILLABLE RUMA VENTURA MD Jan 13, 2025 12:47
[2025-01-13] MEDS: POTASSIUM CHL 20 Meq TABLET PO ONE ×2 (14:36→14:39)
--- NOTE | 2025-01-13 15:32 | DVHSR ---
APPROVED REPORT EXAM: Two-dimensional and M-mode echocardiogram with Doppler and color Doppler. Blood Pressure: 110/60 mmHg INDICATION Evaluate cardiac function RISK FACTORS Obesity: Height: 5'3", Weight: 218 DIMENSIONS LVDd 5.0 (3.8-5.7cm) LA (2D) 4.4 (1.9-4.0cm) Aortic Root 3.5 (2.0-3.7cm) LVDs 3.2 (2.5-4.0cm) LA (MM) (1.9-4.0cm) Aortic Cusp Exc 2.1 (1.5-2.0cm) EF (%) 60.0 (55-70%) Rt. Atrium 4.0 (1.9-4.0cm) Asc. Aorta cm IVSd 0.9 (0.7-1.1cm) RV (D) (1.8-2.4cm) PWd 0.8 (0.7-1.1cm) Mitral Valve Mitral Mitral Stenosis E wave 0.95m/s MV Mean GR. mmHg A wave 0.76m/s MV Peak GR. mmHg E/A ratio 1.3 2D MVA cm2 DECEL Time 184ms PRESS 1/2 Time ms Aortic Valve Aortic Valve Aortic Stenosis V1 0.83m/s AO Mean GR. 3mmHg V2 1.27m/s AO Peak GR. 6mmHg LVOT Diameter 2.0 (1.8-2.4cm) Doppler NEETA 2.05cm2 Pulmonic Valve V2 0.85m/s Other Information Technically limited study due to body habitus. Conclusion Technically a good study, Normal Sinus Rythm Left atrial enlargement. Aortic root enlargement. RV enlargement. Right atrial enlargement. Normal Valves Left ventricular systolic performance is preserved with an EF of 65% and normal RV function. Mild pulmonic insufficiency. No masses or vegetations dicernable. Small pericardial effusion not hemodynamically significant.
--- NOTE | 2025-01-13 19:43 | DVHINCON2 ---
Date of service: Jan 13, 2025 Referring Physician Blanco Stafford Reason for Consultation Nausea vomiting and elevated liver enzymes History of Present Illness This is a pleasant Swazi-speaking 69-year-old female patient who presents to the emergency room with chief complaint of worsening abdominal pain. The patient reports that she has been experiencing abdominal pain as well as nausea, vomiting and constipation for four days prior to emergency room arrival. GI was consulted for the same. She also had mild elevation liver enzymes which are trending up. Right upper quadrant ultrasound showed hepatic steatosis prior cholecystectomy. Patient has a long history of heartburn and acid reflux. CT abdomen showed some curvilinear densities in the stomach and mild gastric distention. Patient is ambulatory Past Medical History Hypertension, kidney stones, diabetes Past Surgical History Cholecystectomy Allergies: Coded Allergies: Penicillins (Verified Allergy, Unknown, 01/12/25) Home Meds Reported Medications Glipizide (Glipizide) 5 Mg Tab, 1 TAB PO BID, #60 TAB 3 Refills 01/12/25 Atorvastatin Calcium (Lipitor) 10 Mg Tab, 1 TAB PO QPM, #90 TAB 1 Refill 01/12/25 Lisinopril (Lisinopril) 2.5 Mg Tab, 1 TAB PO DAILY, #30 TAB 5 Refills 01/12/25 Acetaminophen (Acetaminophen) 500 Mg Tab, 500 MG PO, TAB 01/12/25 Semaglutide (Rybelsus) 7 Mg Tab, 7 MG PO, TAB 01/12/25 Current Medications Current Medications Medications (Trade) Dose Ordered Sig/Lea Route PRN Reason Start Time Stop Time Status Last Admin Insulin Human Regular (InsuLIN R) HS SC 01/12/25 22:00 Vital Signs Vital Signs Date Time Temp Pulse Resp B/P (MAP) Pulse Ox O2 Delivery O2 Flow Rate FiO2 01/13/25 16:48 98.1 67 17 140/77 (98) 99 98.1 01/13/25 08:00 Room Air* 0 21 Physical Exam General Appearance: Alert, Oriented X3, Cooperative Lungs: Clear to auscultation, Normal air movement Cardiovascular: Regular rate, Normal S1, Normal S2 Abdomen: Normal bowel sounds, Soft, No tenderness Extremities: No edema; ambulatory Labs/Diagnostic Data Labs Test 01/13/25 16:20 01/13/25 11:06 01/12/25 08:30 01/12/25 07:45 Range/Units POC Glucose 111 H 70-106 mg/dl White Blood Count 5.7 # 4.4-10.8 10^3/uL Red Blood Count 3.96 L 4.0-5.20 10^6/uL Hemoglobin 11.8 L 12.2-16.2 g/dL Hematocrit 35.0 L 36.0-46.0 % Mean Corpuscular Volume 88.3 80.0-100.0 fL Mean Corpuscular Hemoglobin 29.8 28.0-32.0 pg Mean Corpuscular Hemoglobin Concent 33.8 32.0-36.0 g/dL Red Cell Distribution Width 15.2 H 11.8-14.3 % Platelet Count 186 140-450 10^3/uL Mean Platelet Volume 7.7 6.9-10.8 fL Neutrophils (%) (Auto) 84.9 H 37.0-80.0 % Lymphocytes (%) (Auto) 7.2 L 10.0-50.0 % Monocytes (%) (Auto) 4.1 0.0-12.0 % Eosinophils (%) (Auto) 3.5 0.0-7.0 % Basophils (%) (Auto) 0.3 0.0-2.0 % Neutrophils # (Auto) 4.8 1.6-8.6 10 ^3/uL Lymphocytes # (Auto) 0.4 0.4-5.4 10 ^3/uL Monocytes # (Auto) 0.2 0-1.3 10 ^3/uL Eosinophils # (Auto) 0.2 0-0.8 10 ^3/uL Basophils # (Auto) 0 0-0.2 10 ^3/uL Nucleated Red Blood Cells 0.1 % Prothrombin Time 12.5 H 9.3-11.8 sec Prothrombin Time INR 1.20 H 0.9-1.15 Sodium Level 140 136-145 mmol/L Potassium Level 3.3 L 3.5-5.1 mmol/L Chloride Level 102 98-107 mmol/L Carbon Dioxide Level 28 20-31 mmol/L Anion Gap 10 5-15 Blood Urea Nitrogen 6 L 9-23 mg/dL Creatinine 0.80 0.550-1.02 mg/dL Glomerular Filtration Rate Calc 80 >90 mL/min BUN/Creatinine Ratio 7.5 L 10.0-20.0 Serum Glucose 155 H 74-106 mg/dL Calcium Level 9.1 8.7-10.4 mg/dL Magnesium Level 1.8 1.6-2.6 mg/dL Ferritin 173.3 10-291 ng/mL Total Bilirubin 3.3 H 0.2-1.0 mg/dL Aspartate Amino Transferase (AST) 352 H 13-40 U/L Alanine Aminotransferase (ALT) 496 H 7-40 U/L Alkaline Phosphatase 267 H 46-116 U/L Total Protein 7.5 5.7-8.2 g/dL Albumin 4.1 3.2-4.8 g/dL Lactic Acid Level 1.8 0.4-2.0 mmol/L Urine Color Dark-yellow Yellow Urine Clarity Clear Clear Urine pH 7.0 5.0-9.0 Urine Specific [place] 1.021 1.001-1.035 Urine Protein Trace H Negative Urine Ketones Trace Negative Urine Blood Negative Negative /uL Urine Nitrite Negative Negative Urine Bilirubin 1+ H Negative Urine Urobilinogen >1.050 Negative mg/dL Urine Leukocyte Esterase Negative Negative /uL Urine RBC 1 0 - 4 /hpf Urine Microscopic WBC 4 0-5 /HPF Urine Squamous Epithelial Cells Few <5 /hpf Urine Bacteria None seen None Seen /hpf Urine Mucus Few None Seen Urine Glucose Trace Normal mg/dL Test 01/12/25 06:29 01/11/25 21:57 01/11/25 21:12 Range/Units Triglycerides Level 55 < 150 mg/dL Cholesterol Level 107 < 200 mg/dL LDL Cholesterol 46 < 100 mg/dL HDL Cholesterol 45 40-59 mg/dL Thyroid Stimulating Hormone (TSH) 1.61 0.55-4.78 uIU/mL Troponin I High Sensitivity 5 </=34 ng/L Lipase 43 12-53 U/L Microbiology Date/Time Source Procedure Growth Status 01/12/25 00:13 Blood Blood Culture - Preliminary NO GROWTH AFTER 24 HOURS OF INCUBATION. Resulted CT SCAN ABD PELVIS IMPRESSION: 1. Stomach distention with multiple curvilinear densities of indeterminate etiology and may be related to ingested material. 2. Associated fluid of the stomach. Correlate for acute gastritis. 3. No CT evidence of bowel obstruction. 4. Small pericardial effusion. No CT features to suggest constrictive morphology. 5. Normal appendix. 6. Mild stool burden. Problems(with codes): (1) Hepatic steatosis (2) Elevated liver enzymes (3) Diabetes mellitus with hyperglycemia (4) Acute abdominal pain (5) Transaminitis (6) Generalized weakness (7) Acute gastritis (8) Pericardial effusion Plan/Recommendation Plan Hepatitis panel, GINO, ferritin MRCP rule out CBD stone Protonix 40 mg IV q.12 hours Possible EGD on 01/15 if the above workup is negative Monitor labs and I will follow up patient with you Plan discussed with: Other (Dr Coughlin) BLANKA PHAN MD Jan 13, 2025 19:43
[2025-01-13] MEDS: DOCUSATE SOD 100 MG CAP PO ONE (22:17)
[2025-01-14] VITALS (8 sets, daily range): BP systolic 116–134; BP diastolic 44–70; PULSE 48–60; RESP 16–19; TEMP 97.7–98.2; O2SAT 92–97
[2025-01-14 07:39] LABS: Hematocrit 32.6 % (36.0-46.0); Hemoglobin 11.1 g/dL (12.2-16.2); Mean Corpuscular Hemoglobin 30.2 pg (28.0-32.0); Mean Corpuscular Volume 88.2 fL (80.0-100.0); Nucleated Red Blood Cells % 0.2 %
[2025-01-14 08:03] LABS: Magnesium 1.9 mg/dL (1.6-2.6)
[2025-01-14 08:34] LABS: Lipase 29.0 U/L (12-53)
[2025-01-14 10:37] LABS: Albumin 3.5 g/dL (3.2-4.8); Anion Gap 10 (5-15); Calcium 9.3 mg/dL (8.7-10.4); Carbon Dioxide 26 mmol/L (20-31); Glucose 84 mg/dL (74-106); Potassium 4.4 mmol/L (3.5-5.1); Total Protein 6.7 g/dL (5.7-8.2)
[2025-01-14 10:58] LABS: Alanine Aminotransferase 345 U/L (7-40); Alkaline Phosphatase 235 U/L (46-116); BUN/Creatinine Ratio 7.0 (10.0-20.0); Bilirubin, Total 1.6 mg/dL (0.2-1.0); Blood Urea Nitrogen < 5 mg/dL (9-23); Chloride 110 mmol/L (98-107); Sodium 146 mmol/L (136-145)
[2025-01-14] MEDS: DOCUSATE SOD 100 MG CAP PO ONE (11:15)
[2025-01-14] MEDS: DOCUSATE SOD 100 MG CAP PO PRN (11:19)
--- NOTE | 2025-01-14 11:44 | DVHPN2 ---
Subjective She denies abdominal pain or nausea or vomiting Liver functions show some improvement Changes from previous H/P or p: Changes Eyes: No Pain, No Vision change, No Conjunctivae inflammation, No Eyelid inflammation, No Other, No Redness ENT: No Ear pain, No Ear discharge, No Nose pain, No Nose discharge, No Nose congestion, No Mouth pain, No Mouth swelling, No Throat pain, No Throat swelling, No Other Cardiovascular: No Chest Pain, No Palpitations, No Orthopnea, No Paroxysmal Noc. Dyspnea, No Edema, No Lt Headedness, No Other Respiratory: No Cough, No Dry, No Shortness of breath, No SOB with excertion, No Wheezing, No Hemoptysis, No Pleuritic Pain, No Sputum, No Other Gastrointestinal: Nausea, Vomiting, Abdominal Pain; No Diarrhea; Constipation; No Melena, No Hematochezia, No Other Genitourinary: No Dysuria, No Frequency, No Incontinence, No Hematuria, No Retention, No Other Musculoskeletal: No other, No neck pain, No shoulder pain, No arm pain, No back pain, No hand pain, No leg pain, No foot pain Skin: No Rash, No Lesions, No Jaundice, No Bruising, No Other Objective Vitals Vital Signs Date Time Temp Pulse Resp B/P (MAP) Pulse Ox O2 Delivery O2 Flow Rate FiO2 01/14/25 08:33 97.8 53 19 119/44 (69) 97 97.8 01/14/25 08:00 Room Air* 0 21 Intake/Output Intake and Output 01/14/25 07:00 Intake Total 2725 ml Output Total 500 ml Balance 2225 ml Intake Oral 2375 ml IV Total 350 ml Output Urine Total 500 ml # Voids 5 General Appearance: Alert, Oriented X3, Cooperative Lungs: Clear to auscultation, Normal air movement Cardiovascular: Regular rate, Normal S1, Normal S2 Abdomen: Normal bowel sounds, Soft, No tenderness Extremities: No edema Medications Current Medications Medications Dose Ordered Sig/Lea Route Start Time Stop Time Status Last Admin Dose Admin Metronidazole 100 ml @ 100 mls/hr Q8HR IV 01/12/25 06:00 01/14/25 05:43 100 MLS/HR Ceftriaxone Sodium 50 ml @ 100 mls/hr DAILY@09 IV 01/12/25 09:00 01/14/25 11:19 100 MLS/HR Diagnostic Test (Pha) 1 strip ACHS 01/12/25 07:00 01/14/25 11:27 1 STRIP Insulin Human Regular HS SC 01/12/25 22:00 01/13/25 22:00 2 UNITS Insulin Human Regular AC SC 01/12/25 07:00 01/13/25 11:40 2 UNITS Dextrose 50 ml UD PRN IV 01/12/25 01:15 Sodium Chloride 10 ml Q8HR IV 01/12/25 06:00 01/14/25 05:44 10 ML Acetaminophen/ Hydrocodone Bitart 1 tab Q4HP PRN PO 01/12/25 01:15 01/12/25 17:55 1 TAB Ondansetron HCl 4 mg Q4HP PRN IV 01/12/25 01:15 Docusate Sodium 100 mg BIDPRN PRN PO 01/12/25 01:15 01/14/25 11:19 100 MG Morphine Sulfate 2 mg Q4HPRN PRN IV 01/12/25 01:15 Nitroglycerin 0.4 mg Q5MINP PRN SL 01/12/25 02:45 Morphine Sulfate 2 mg Q30M PRN IV 01/12/25 02:45 Pantoprazole Sodium 40 mg DAILY IV 01/12/25 10:00 01/14/25 11:20 40 MG Laboratory Results Laboratory Tests 01/14/25 06:03 Chemistry Test 01/14/25 06:03 Albumin 3.5 g/dL (3.2-4.8) Calcium Level 9.3 mg/dL (8.7-10.4) Magnesium Level 1.9 mg/dL (1.6-2.6) Total Protein 6.7 g/dL (5.7-8.2) Lipid panel Test 01/14/25 06:03 Lipase 29 U/L (12-53) LFT Test 01/14/25 06:03 Alanine Aminotransferase (ALT) 345 U/L (7-40) H Alkaline Phosphatase 235 U/L (46-116) H Aspartate Amino Transferase (AST) 196 U/L (13-40) H Total Bilirubin 1.6 mg/dL (0.2-1.0) H Urinalysis Test 01/12/25 07:45 Urine Color Dark-yellow (Yellow) Urine Clarity Clear (Clear) Urine pH 7.0 (5.0-9.0) Urine Specific [place] 1.021 (1.001-1.035) Urine Protein Trace (Negative) H Urine Ketones Trace (Negative) Urine Blood Negative /uL (Negative) Urine Nitrite Negative (Negative) Urine Bilirubin 1+ (Negative) H Urine Urobilinogen >1.050 mg/dL (Negative) Urine Leukocyte Esterase Negative /uL (Negative) Urine RBC 1 /hpf (0 - 4) Urine Microscopic WBC 4 /HPF (0-5) Urine Squamous Epithelial Cells Few /hpf (<5) Urine Bacteria None seen /hpf (None Seen) Urine Mucus Few (None Seen) Urine Glucose Trace mg/dL (Normal) Microbiology Microbiology Date/Time Source Procedure Growth Status 01/12/25 00:13 Blood Blood Culture - Preliminary NO GROWTH AFTER 48 HOURS OF INCUBATION. Resulted Assessment/Plan Assessment/Plan Acute gastritis Pericardial effusion Hypertension Mixed hyperlipidemia Type 2 diabetes Transaminitis Hypokalemia Morbid obesity Plan IV Protonix GI consult Discontinue ibuprofen Possible EGD by GI 01/14/2025: Transaminitis with evidence of biliary obstruction, rule out choledocholithiasis Hypernatremia Abdominal pain MRCP today EGD per GI tomorrow Monitor closely Discussed with the family at the bedside Plan discussed with: Patient, Daughter Date of Service: Jan 14, 2025 Billing Provider: RUMA VENTURA MD Common Visit Codes: NOT BILLABLE RUMA VENTURA MD Jan 14, 2025 11:44
--- NOTE | 2025-01-14 15:47 | DVH ---
EXAM: MRI MRCP MRI HISTORY: elevated liver enzymes and bilirubin COMPARISON: None TECHNIQUE: Multiplanar, multisequence imaging of the abdomen was performed with and without contrast. FINDINGS: [LOWER CHEST]: Small bilateral pleural effusions. [LIVER]: The liver is normal in size without focal lesions. Normal liver contour. [SPLEEN]: Unremarkable. [PANCREAS]: The pancreas is normal in appearance without focal lesions. Normal pancreatic duct size. [GALLBLADDER AND DUCTS]: Status post prior cholecystectomy. Small filling defect suspected of the distal common bile duct measuring 7 mm which may reflect choledocholithiasis. Proximal common bile duct measures up to 9 mm compatible with choledocholithiasis. [ADRENAL GLANDS]: Unremarkable. [KIDNEYS]: Normal enhancement without suspicious lesions or hydronephrosis. [VISUALIZED BOWEL]: Trace possible sliding hiatal hernia. [VASCULATURE]: Unremarkable. [LYMPHADENOPATHY]: No evidence for lymphadenopathy. [ASCITES]: Absent. [MUSCULOSKELETAL]: Bone marrow signal is normal. [OTHER]: Benign-appearing T2 hyperintense presumed bilateral breast cysts. Trace possible pericardial effusion. IMPRESSION: 1. Small filling defect suspected of the distal common bile duct measuring 7 mm which may reflect choledocholithiasis. 2. Proximal common bile duct measures up to 9 mm compatible with choledocholithiasis. 3. Small bilateral pleural effusions.
--- NOTE | 2025-01-14 17:34 | DVHPN2 ---
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 Objective vital signs Vital Sign Date Time Temp Pulse Resp B/P (MAP) Pulse Ox O2 Delivery O2 Flow Rate FiO2 01/14/25 16:38 97.9 56 19 134/64 (87) 92 97.9 01/14/25 08:00 Room Air* 0 21 Total Intake and Output 01/13/25 01/13/25 01/14/25 15:00 23:00 07:00 Intake Total 700 ml 1325 ml 700 ml Output Total 500 ml Balance 700 ml 1325 ml 200 ml medications Current Medications Medications Dose Ordered Sig/Lea Route Start Time Stop Time Status Last Admin Dose Admin Metronidazole 100 ml @ 100 mls/hr Q8HR IV 01/12/25 06:00 01/14/25 05:43 100 MLS/HR Ceftriaxone Sodium 50 ml @ 100 mls/hr DAILY@09 IV 01/12/25 09:00 01/14/25 11:19 100 MLS/HR Diagnostic Test (Pha) 1 strip ACHS 01/12/25 07:00 01/14/25 17:29 1 STRIP Insulin Human Regular HS SC 01/12/25 22:00 01/13/25 22:00 2 UNITS Insulin Human Regular AC SC 01/12/25 07:00 01/13/25 11:40 2 UNITS Dextrose 50 ml UD PRN IV 01/12/25 01:15 Sodium Chloride 10 ml Q8HR IV 01/12/25 06:00 01/14/25 05:44 10 ML Acetaminophen/ Hydrocodone Bitart 1 tab Q4HP PRN PO 01/12/25 01:15 01/12/25 17:55 1 TAB Ondansetron HCl 4 mg Q4HP PRN IV 01/12/25 01:15 Docusate Sodium 100 mg BIDPRN PRN PO 01/12/25 01:15 01/14/25 11:19 100 MG Morphine Sulfate 2 mg Q4HPRN PRN IV 01/12/25 01:15 Nitroglycerin 0.4 mg Q5MINP PRN SL 01/12/25 02:45 Morphine Sulfate 2 mg Q30M PRN IV 01/12/25 02:45 Pantoprazole Sodium 40 mg DAILY IV 01/12/25 10:00 01/14/25 11:20 40 MG Examination: GENERAL:Normal, LUNGS:Normal, CVS:Normal, NEURO:Normal laboratory and microbiology Laboratory Tests 01/14/25 06:03 Test 01/14/25 06:03 Range/Units Serum Glucose 84 74-106 mg/dL Problem List/Assessment/Plan Problem List/Assessment/Plan Small pericardial effusion Ruled out structural heart disease Acute gastritis Hypertension Dyslipidemia Type 2 diabetes mellitus Transaminitis Hypokalemia, resolved Morbid obesity Plan/Recommendations (Dr. Van): An abdominal CT incidentally reveals a small pericardial effusion with no CT features to suggest constrictive morphology. A transthoracic echocardiogram was ordered for further evaluation and reveals an EF of 65% with a small pericardial effusion that is not hemodynamically significant. Imaging personally reviewed by traveling auditor Dr. Van. At this time, the patient is hemodynamically stable without any signs of tamponade. There is no further inpatient cardiac workup indicated at this time. The patient should have a follow up transthoracic echocardiogram within 1-2 weeks. Patient and her son at bedside were educated on findings. They verbalized understanding. Thank you for allowing us to care for this patient. Please call with any questions or concerns. This medical document was created using an electronic medical record system with voice recognition software and computerized dictation system. Although this document has been carefully reviewed, there might still be some phonetic and typographical errors. Occasional wrong-word or ``sound-alike substitutions may have occurred due to the inherent limitations of voice recognition software. These areas are purely typographical due to imperfections of the software programs and do not reflect any compromise in the patient's medical care. Please read the chart carefully and recognize, using context, where these substitutions have occurred. Plan discussed with: Patient Date of Service: Jan 14, 2025 Billing Provider: GAUTAM HANNA Common Visit Codes: [id number] INP/OBS CARE(HIGH) GAUTAM HANNA Jan 14, 2025 17:34
--- NOTE | 2025-01-14 18:24 | DVHPN2 ---
Progress Note - Dictate Date Seen: Jan 14, 2025 Medical Necessity Reason Pt with a Central, PICC or Fol: No Subjective Mild epigastric pain and dyspepsia No further nausea and vomiting CT scan showed GERD gastric distention Patient has not had any prior endoscopy Liver enzymes are trending down MRCP showed small some 7 mm filling defect vital signs Vital Sign Date Time Temp Pulse Resp B/P (MAP) Pulse Ox O2 Delivery O2 Flow Rate FiO2 01/14/25 16:38 97.9 56 19 134/64 (87) 92 97.9 01/14/25 08:00 Room Air* 0 21 Total Intake and Output 01/13/25 01/13/25 01/14/25 15:00 23:00 07:00 Intake Total 700 ml 1325 ml 700 ml Output Total 500 ml Balance 700 ml 1325 ml 200 ml medications Current Medications Medications Dose Ordered Sig/Lea Route Start Time Stop Time Status Last Admin Dose Admin Metronidazole 100 ml @ 100 mls/hr Q8HR IV 01/12/25 06:00 01/14/25 05:43 100 MLS/HR Ceftriaxone Sodium 50 ml @ 100 mls/hr DAILY@09 IV 01/12/25 09:00 01/14/25 11:19 100 MLS/HR Diagnostic Test (Pha) 1 strip ACHS 01/12/25 07:00 01/14/25 17:29 1 STRIP Insulin Human Regular HS SC 01/12/25 22:00 01/13/25 22:00 2 UNITS Insulin Human Regular AC SC 01/12/25 07:00 01/13/25 11:40 2 UNITS Dextrose 50 ml UD PRN IV 01/12/25 01:15 Sodium Chloride 10 ml Q8HR IV 01/12/25 06:00 01/14/25 05:44 10 ML Acetaminophen/ Hydrocodone Bitart 1 tab Q4HP PRN PO 01/12/25 01:15 01/12/25 17:55 1 TAB Ondansetron HCl 4 mg Q4HP PRN IV 01/12/25 01:15 Docusate Sodium 100 mg BIDPRN PRN PO 01/12/25 01:15 01/14/25 11:19 100 MG Morphine Sulfate 2 mg Q4HPRN PRN IV 01/12/25 01:15 Nitroglycerin 0.4 mg Q5MINP PRN SL 01/12/25 02:45 Morphine Sulfate 2 mg Q30M PRN IV 01/12/25 02:45 Pantoprazole Sodium 40 mg DAILY IV 01/12/25 10:00 01/14/25 11:20 40 MG objective General Appearance: Alert, Oriented X3, Cooperative Lungs: Clear to auscultation, Normal air movement Cardiovascular: Regular rate, Normal S1, Normal S2 Abdomen: Normal bowel sounds, Soft, No tenderness Extremities: No edema; ambulatory laboratory and microbiology Laboratory Tests 01/14/25 06:03 Test 01/14/25 06:03 Range/Units Serum Glucose 84 74-106 mg/dL MRCP IMPRESSION: 1. Small filling defect suspected of the distal common bile duct measuring 7 mm which may reflect choledocholithiasis. 2. Proximal common bile duct measures up to 9 mm compatible with choledocholithiasis. 3. Small bilateral pleural effusions. Problems(with codes): (1) Hepatic steatosis (2) Diabetes mellitus with hyperglycemia (3) Elevated liver enzymes (4) Generalized weakness (5) Acute abdominal pain (6) Transaminitis (7) Acute gastritis (8) Pericardial effusion (9) Choledocholithiasis Prognosis Plan Planning a possible EGD tomorrow due to gastric distention and multiple curvilinear density in the stomach MRCP also shows evidence of a subcentimeter filling defect possible CBD stone Patient will likely need referral as an outpatient for elective ERCP At this time her liver enzymes appear to be trending down and we will repeat labs tomorrow Plan discussed with: Patient, Other (Dr Coughlin) BLANKA PHAN MD Jan 14, 2025 18:24
[2025-01-14] MEDS: InsuLIN REG 1unit/0.01ml Soln (100units/ml) ONE (21:22)
[2025-01-15] VITALS (10 sets, daily range): BP systolic 115–156; BP diastolic 56–77; PULSE 48–96; RESP 12–18; TEMP 97.5–98.2; O2SAT 94–99
[2025-01-15 07:00] LABS: Albumin 3.8 g/dL (3.2-4.8); Anion Gap 12 (5-15); Calcium 9.3 mg/dL (8.7-10.4); Carbon Dioxide 28 mmol/L (20-31); Chloride 104 mmol/L (98-107); Sodium 144 mmol/L (136-145); Total Protein 7.0 g/dL (5.7-8.2)
[2025-01-15 07:01] LABS: Alanine Aminotransferase 254 U/L (7-40); Alkaline Phosphatase 237 U/L (46-116); BUN/Creatinine Ratio 6.9 (10.0-20.0); Bilirubin, Total 1.2 mg/dL (0.2-1.0); Blood Urea Nitrogen < 5 mg/dL (9-23); Glucose 108 mg/dL (74-106); Magnesium 1.5 mg/dL (1.6-2.6); Potassium 3.3 mmol/L (3.5-5.1)
[2025-01-15] MEDS: POTASSIUM CHL 20MEQ/100ML 100 ML IV ONE (07:45)
[2025-01-15] MEDS: MAGNESIUM SULFATE 1GM/100ML 100 ML IV SCH (08:27)
--- NOTE | 2025-01-15 09:12 | DVHPN2 ---
Subjective Asymptomatic Scheduled for EGD today MRCP showed 7 mm choledocholithiasis Liver functions improving Bilirubin is 1.2 Changes from previous H/P or p: Changes Eyes: No Pain, No Vision change, No Conjunctivae inflammation, No Eyelid inflammation, No Other, No Redness ENT: No Ear pain, No Ear discharge, No Nose pain, No Nose discharge, No Nose congestion, No Mouth pain, No Mouth swelling, No Throat pain, No Throat swelling, No Other Cardiovascular: No Chest Pain, No Palpitations, No Orthopnea, No Paroxysmal Noc. Dyspnea, No Edema, No Lt Headedness, No Other Respiratory: No Cough, No Dry, No Shortness of breath, No SOB with excertion, No Wheezing, No Hemoptysis, No Pleuritic Pain, No Sputum, No Other Gastrointestinal: Nausea, Vomiting, Abdominal Pain; No Diarrhea; Constipation; No Melena, No Hematochezia, No Other Genitourinary: No Dysuria, No Frequency, No Incontinence, No Hematuria, No Retention, No Other Musculoskeletal: No other, No neck pain, No shoulder pain, No arm pain, No back pain, No hand pain, No leg pain, No foot pain Skin: No Rash, No Lesions, No Jaundice, No Bruising, No Other Objective Vitals Vital Signs Date Time Temp Pulse Resp B/P (MAP) Pulse Ox O2 Delivery O2 Flow Rate FiO2 01/15/25 08:45 98.2 49 14 142/69 (93) 94 98.2 01/14/25 20:00 Room Air* 0 21 Intake/Output Intake and Output 01/15/25 07:00 Intake Total 2060 ml Output Total 600 ml Balance 1460 ml Intake Oral 1860 ml IV Total 200 ml Output Urine Total 600 ml # Voids 2 General Appearance: Alert, Oriented X3, Cooperative Lungs: Clear to auscultation, Normal air movement Cardiovascular: Regular rate, Normal S1, Normal S2 Abdomen: Normal bowel sounds, Soft, No tenderness Extremities: No edema Medications Current Medications Medications Dose Ordered Sig/Lea Route Start Time Stop Time Status Last Admin Dose Admin Ceftriaxone Sodium 50 ml @ 100 mls/hr DAILY@09 IV 01/12/25 09:00 01/14/25 11:19 100 MLS/HR Diagnostic Test (Pha) 1 strip ACHS 01/12/25 07:00 01/15/25 06:37 1 STRIP Insulin Human Regular HS SC 01/12/25 22:00 01/14/25 21:08 2 UNITS Insulin Human Regular AC SC 01/12/25 07:00 01/13/25 11:40 2 UNITS Dextrose 50 ml UD PRN IV 01/12/25 01:15 Sodium Chloride 10 ml Q8HR IV 01/12/25 06:00 01/15/25 05:19 10 ML Acetaminophen/ Hydrocodone Bitart 1 tab Q4HP PRN PO 01/12/25 01:15 01/12/25 17:55 1 TAB Ondansetron HCl 4 mg Q4HP PRN IV 01/12/25 01:15 Docusate Sodium 100 mg BIDPRN PRN PO 01/12/25 01:15 01/14/25 21:05 100 MG Morphine Sulfate 2 mg Q4HPRN PRN IV 01/12/25 01:15 Nitroglycerin 0.4 mg Q5MINP PRN SL 01/12/25 02:45 Morphine Sulfate 2 mg Q30M PRN IV 01/12/25 02:45 Pantoprazole Sodium 40 mg DAILY IV 01/12/25 10:00 01/15/25 08:26 40 MG Metronidazole 100 ml @ 100 mls/hr Q8HR IV 01/14/25 20:23 01/15/25 05:18 100 MLS/HR Magnesium Sulfate/ Dextrose 100 ml @ 100 mls/hr Q1HR IV 01/15/25 08:00 01/15/25 09:59 01/15/25 08:27 100 MLS/HR Laboratory Results Laboratory Tests 01/14/25 06:03 01/15/25 06:10 Chemistry Test 01/15/25 06:10 Albumin 3.8 g/dL (3.2-4.8) Calcium Level 9.3 mg/dL (8.7-10.4) Magnesium Level 1.5 mg/dL (1.6-2.6) L Total Protein 7.0 g/dL (5.7-8.2) LFT Test 01/15/25 06:10 Alanine Aminotransferase (ALT) 254 U/L (7-40) H Alkaline Phosphatase 237 U/L (46-116) H Aspartate Amino Transferase (AST) 104 U/L (13-40) H Total Bilirubin 1.2 mg/dL (0.2-1.0) H Urinalysis Test 01/12/25 07:45 Urine Color Dark-yellow (Yellow) Urine Clarity Clear (Clear) Urine pH 7.0 (5.0-9.0) Urine Specific [place] 1.021 (1.001-1.035) Urine Protein Trace (Negative) H Urine Ketones Trace (Negative) Urine Blood Negative /uL (Negative) Urine Nitrite Negative (Negative) Urine Bilirubin 1+ (Negative) H Urine Urobilinogen >1.050 mg/dL (Negative) Urine Leukocyte Esterase Negative /uL (Negative) Urine RBC 1 /hpf (0 - 4) Urine Microscopic WBC 4 /HPF (0-5) Urine Squamous Epithelial Cells Few /hpf (<5) Urine Bacteria None seen /hpf (None Seen) Urine Mucus Few (None Seen) Urine Glucose Trace mg/dL (Normal) Microbiology Microbiology Date/Time Source Procedure Growth Status 01/12/25 00:13 Blood Blood Culture - Preliminary NO GROWTH AFTER 72 HOURS OF INCUBATION. Resulted Assessment/Plan Assessment/Plan Acute gastritis Pericardial effusion Hypertension Mixed hyperlipidemia Type 2 diabetes Transaminitis Hypokalemia Morbid obesity Plan IV Protonix GI consult Discontinue ibuprofen Possible EGD by GI 01/14/2025: Transaminitis with evidence of biliary obstruction, rule out choledocholithiasis Hypernatremia Abdominal pain MRCP today EGD per GI tomorrow Monitor closely Discussed with the family at the bedside 01/15/2025: NPO EGD today Replace potassium magnesium IV Midline Liver functions are improving so ERCP is not needed at this time maybe she needed as an outpatient per GI recommendations Monitor closely Plan discussed with: Patient My Orders Orders - RUMA VENTURA MD Procedure Category Date Status Time Potassium Chl PHA 01/15/25 In Process 20meq/100ml 07:45 Magnesium Sulfate PHA 01/15/25 In Process 1gm/100ml 08:00 Insert Midline ORDERS 01/15/25 Transmitted 09:05 Date of Service: Jan 15, 2025 Billing Provider: RUMA VENTURA MD Common Visit Codes: NOT BILLABLE RUMA VENTURA MD Jan 15, 2025 09:12
[2025-01-15 11:58] LABS: Hepatitis A Total Antibody Positive (Negative); Hepatitis B Surface Antigen Negative (Negative); Hepatitis C Antibody Negative (Negative)
[2025-01-15] MEDS: LIDOCAINE VISCOUS 2% 15ML UD ONE (13:51)
[2025-01-15] MEDS ORDERED: fentaNYL CITRATE 100 MCG/2 ML VL ONE (14:00)
[2025-01-15] MEDS ORDERED: MIDAZOLAM HCL 2MG/2ML 2ml VIAL (1mg/ml) ONE (14:01)
[2025-01-15] MEDS ORDERED: PROPOFOL 10 MG/ML 20 ML IV ONE (14:11)
--- NOTE | 2025-01-15 14:15 | DVHOP2 ---
Operative Report DATE OF OPERATION: 01/15/25 PROCEDURE: Upper Endoscopy with biopsy. PREOPERATIVE INDICATION: The patient is a 69 -year-old female undergoing endoscopy for abnormal finding GI tract imaging abdominal pain nausea and vomiting POSTOPERATIVE DIAGNOSES: 1. 2-3 cm sliding-type hiatal hernia with grade a erosive esophagitis from with GE junction biopsies were obtained 2. [id number] gastritis and gastropathy with pylorospasm otherwise normal examination up to the 2nd and 3rd part of the duodenum PROCEDURE PERFORMED BY: Blanka Foy GI NURSE: Jackie SCOPE: Olympus videoendoscope. ASA CLASS: 3 PREOPERATIVE MEDICATIONS: Mac sedation, Dr. Cutler PROCEDURE IN DETAIL: After obtaining an informed consent, the patient was placed on left lateral decubitus position. The patient was then sedated with the above medications. A bite block was placed between her teeth. The endoscope was then passed through the oropharynx, into the esophagus, and through the stomach and pylorus up to the second and third part of the duodenum. The endoscope was then withdrawn. The 2nd and 3rd part of the duodenal and the duodenal bulb were normal. There was no significant bile drainage noted at this time The pre-pyloric area antrum and body showed mild gastritis with some hyperemia erythema and pylorospasm. On retroflexion the fundus and cardia were normal except for mild gastropathy. Gastric biopsies and duodenal biopsies were obtained The endoscope was then withdrawn into distal esophagus where the patient had a 3 cm sliding-type hiatal hernia with irregular squamocolumnar junction She had acute grade a erosive esophagitis and GE junction biopsies were obtained. The remaining distal and proximal esophagus and oropharynx were unremarkable The patient tolerated the procedure well without difficulty. COMPLICATIONS : None SPECIMENS: Duodenal biopsies Gastric biopsies GE junction biopsies DISPOSITION: Transfer back to the floor Stable PLAN: 1. Await for biopsy result 2. Will place pt on Protonix 40 mg bid 3. Carafate 1 g p.o. twice a day 4. Resume GI soft diet advance as tolerated 5. Avoid aspirin NSAIDs smoking alcohol 6. Patient had started an oral form of Ozempic which could have aggravated her symptoms also 7. Liver enzymes are trending down with possible spontaneous passage of CBD stone possible 6. Outpatient follow up with GI Services to monitor her liver enzymes and consider outpatient elective EUS and/or ERCP if symptoms persist BLANKA FOY MD Jan 15, 2025 14:15
[2025-01-15] MEDS: SUCRALFATE 1 GM/10 ML ORAL SUSP PO SCH (17:35)
[2025-01-15] MEDS: InsuLIN REG 1unit/0.01ml Soln (100units/ml) ONE (21:47)
[2025-01-15] MEDS: LACTULOSE 20Gm/30ML SOLN PO ONE (22:18)
[2025-01-16 04:49] VITALS: BP 126/66; PULSE 54; RESP 16; TEMP 98.5; O2SAT 94
[2025-01-16 05:32] LABS: Hematocrit 33.1 % (36.0-46.0); Hemoglobin 11.6 g/dL (12.2-16.2); Mean Corpuscular Hemoglobin 30.6 pg (28.0-32.0); Mean Corpuscular Volume 87.4 fL (80.0-100.0); Nucleated Red Blood Cells % 0.1 %
[2025-01-16 05:43] LABS: Albumin 3.7 g/dL (3.2-4.8); Anion Gap 10 (5-15); BUN/Creatinine Ratio 12.5 (10.0-20.0); Bilirubin, Total 0.9 mg/dL (0.2-1.0); Blood Urea Nitrogen 9 mg/dL (9-23); Calcium 9.3 mg/dL (8.7-10.4); Carbon Dioxide 27 mmol/L (20-31); Chloride 102 mmol/L (98-107); Sodium 139 mmol/L (136-145); Total Protein 6.8 g/dL (5.7-8.2)
[2025-01-16 05:48] LABS: Alanine Aminotransferase 188 U/L (7-40); Alkaline Phosphatase 220 U/L (46-116); Glucose 222 mg/dL (74-106); Magnesium 1.5 mg/dL (1.6-2.6); Potassium 3.3 mmol/L (3.5-5.1)
[2025-01-16] MEDS: InsuLIN REG 1unit/0.01ml Soln (100units/ml) ONE ×2 (06:12→12:44)
[2025-01-16 08:00] VITALS: PULSE 52; PULSE 61; RESP 16
[2025-01-16 09:00] VITALS: BP 134/68; PULSE 54; RESP 18; TEMP 97.6; O2SAT 95
[2025-01-16] MEDS: POTASSIUM CHL 20MEQ/100ML 100 ML IV ONE (09:50)
[2025-01-16] MEDS: MAGNESIUM SULFATE 1GM/100ML 100 ML IV SCH (10:00)
[2025-01-16] MEDS ORDERED: PANT40TA2 PO (11:41)
[2025-01-16] MEDS ORDERED: SUCR1TAB31 OR (11:41)
--- NOTE | 2025-01-16 11:43 | MEDREC ---
[facility] Intervention Section I [facility] Intervention: Review courses of therapy (PLEASE CONSIDER D/C ANTIBIOTIC IN ABSENCE OF BACTERIAL INFECTION) MARQUEZ SPRAGUE PHARMACIST Jan 16, 2025 11:43
--- NOTE | 2025-01-16 11:44 | DVHDS2 ---
Discharge Summary Date of Admission Jan 12, 2025 at 02:42 Date of Discharge: Jan 16, 2025 Labs/Diagnostic Data: Laboratory Results Test 01/16/25 06:07 01/16/25 05:12 01/14/25 06:03 01/13/25 11:06 POC Glucose 209 mg/dl (70-106) White Blood Count 6.3 10^3/uL (4.4-10.8) Red Blood Count 3.79 10^6/uL (4.0-5.20) Hemoglobin 11.6 g/dL (12.2-16.2) Hematocrit 33.1 % (36.0-46.0) Mean Corpuscular Volume 87.4 fL (80.0-100.0) Mean Corpuscular Hemoglobin 30.6 pg (28.0-32.0) Mean Corpuscular Hemoglobin Concent 35.0 g/dL (32.0-36.0) Red Cell Distribution Width 14.9 % (11.8-14.3) Platelet Count 194 10^3/uL (140-450) Mean Platelet Volume 7.5 fL (6.9-10.8) Neutrophils (%) (Auto) 76.5 % (37.0-80.0) Lymphocytes (%) (Auto) 18.5 % (10.0-50.0) Monocytes (%) (Auto) 4.8 % (0.0-12.0) Eosinophils (%) (Auto) 0.0 % (0.0-7.0) Basophils (%) (Auto) 0.2 % (0.0-2.0) Neutrophils # (Auto) 4.8 10 ^3/uL (1.6-8.6) Lymphocytes # (Auto) 1.2 10 ^3/uL (0.4-5.4) Monocytes # (Auto) 0.3 10 ^3/uL (0-1.3) Eosinophils # (Auto) 0 10 ^3/uL (0-0.8) Basophils # (Auto) 0 10 ^3/uL (0-0.2) Nucleated Red Blood Cells 0.1 % Sodium Level 139 mmol/L (136-145) Potassium Level 3.3 mmol/L (3.5-5.1) Chloride Level 102 mmol/L (98-107) Carbon Dioxide Level 27 mmol/L (20-31) Anion Gap 10 (5-15) Blood Urea Nitrogen 9 mg/dL (9-23) Creatinine 0.72 mg/dL (0.550-1.02) Glomerular Filtration Rate Calc 91 mL/min (>90) BUN/Creatinine Ratio 12.5 (10.0-20.0) Serum Glucose 222 mg/dL (74-106) Calcium Level 9.3 mg/dL (8.7-10.4) Magnesium Level 1.5 mg/dL (1.6-2.6) Total Bilirubin 0.9 mg/dL (0.2-1.0) Aspartate Amino Transferase (AST) 68 U/L (13-40) Alanine Aminotransferase (ALT) 188 U/L (7-40) Alkaline Phosphatase 220 U/L (46-116) Total Protein 6.8 g/dL (5.7-8.2) Albumin 3.7 g/dL (3.2-4.8) Lipase 29 U/L (12-53) Prothrombin Time 12.5 sec (9.3-11.8) Prothrombin Time INR 1.20 (0.9-1.15) Ferritin 173.3 ng/mL (10-291) Anti-Nuclear Antibody Screen Negative (Negative) Hepatitis A Antibody Total Positive (Negative) Hepatitis B Surface Antigen Negative (Negative) Hepatitis B Surface Antibody Negative (Negative) Hepatitis B Core Total Antibody Negative (Negative) Hepatitis C Antibody Negative (Negative) Test 01/12/25 08:30 01/12/25 07:45 01/12/25 06:29 01/11/25 21:57 Lactic Acid Level 1.8 mmol/L (0.4-2.0) Urine Color Dark-yellow (Yellow) Urine Clarity Clear (Clear) Urine pH 7.0 (5.0-9.0) Urine Specific [place] 1.021 (1.001-1.035) Urine Protein Trace (Negative) Urine Ketones Trace (Negative) Urine Blood Negative /uL (Negative) Urine Nitrite Negative (Negative) Urine Bilirubin 1+ (Negative) Urine Urobilinogen >1.050 mg/dL (Negative) Urine Leukocyte Esterase Negative /uL (Negative) Urine RBC 1 /hpf (0 - 4) Urine Microscopic WBC 4 /HPF (0-5) Urine Squamous Epithelial Cells Few /hpf (<5) Urine Bacteria None seen /hpf (None Seen) Urine Mucus Few (None Seen) Urine Glucose Trace mg/dL (Normal) Triglycerides Level 55 mg/dL (< 150) Cholesterol Level 107 mg/dL (< 200) LDL Cholesterol 46 mg/dL (< 100) HDL Cholesterol 45 mg/dL (40-59) Thyroid Stimulating Hormone (TSH) 1.61 uIU/mL (0.55-4.78) Troponin I High Sensitivity 5 ng/L (</=34) Other Laboratory Tests 01/16/25 05:12 Brief Hx & Hospital Course: Final diagnoses: Acute gastritis Hiatal hernia Pericardial effusion Hypertension Mixed hyperlipidemia Type 2 diabetes Transaminitis Hypokalemia Hypomagnesemia Morbid obesity 69-year-old female who was admitted for abdominal pain and she was seen by GI requiring EGD which showed hiatal hernia and mild gastritis She was given Protonix and Carafate She is doing better She also had evidence of biliary obstruction but empty improved quickly MRCP showed possible choledocholithiasis but her liver functions and bilirubin improved significantly and she is asymptomatic and therefore GI recommended for her to follow up as an outpatient for possible ERCP if her symptoms do not resolve completely For the time being the patient is stable for discharge on Protonix and Carafate Follow up with the primary care physician as soon as possible Condition at Discharge: Stable Final Diagnosis/Problems List Acute gastritis Hiatal hernia Pericardial effusion Hypertension Mixed hyperlipidemia Type 2 diabetes Transaminitis Hypokalemia Hypomagnesemia Morbid obesity Discharge Disposition: Home SNF Discharge Will this Physician continue t: No Discharge Instruct/Medications Scheduled Atorvastatin Calcium (Lipitor), 1 TAB PO QPM, (Reported) Glipizide (Glipizide), 1 TAB PO BID, (Reported) Lisinopril (Lisinopril), 1 TAB PO DAILY, (Reported) Miscellaneous Medications Acetaminophen (Acetaminophen), 500 MG PO, (Reported) Semaglutide (Rybelsus), 7 MG PO, (Reported) Discharge Statement: "Patient was advised to return to the ER or call 911 if any headaches, dizziness, shortness of breath, chest pain, abdominal pain, bleeding, fevers, or worsening of medical condition. Patient was counseled about treatment plan, medications, possible side effects, patientverbalized understanding. All questions were answered to the best of my ability. This discharge took greater then 30 minutes in planning, reviewing documentation, counseling the patient, and discussing with other team members." ASSESSMENT ASSESSMENT Assessment Date of Service: Jan 16, 2025 Billing Provider: RUMA VENTURA MD Common Visit Codes: NOT BILLABLE RUMA VENTURA MD Jan 16, 2025 11:43
[2025-01-16 12:58] VITALS: BP 143/78; PULSE 78; RESP 18; TEMP 97.5; O2SAT 95
[2025-01-16 17:00] VITALS: BP 132/65; PULSE 59; RESP 18; TEMP 98.3; O2SAT 95
--- NOTE | 2025-01-16 21:47 | DVHPN2 ---
Progress Note - Dictate Date Seen: Jan 16, 2025 (Time of visit 11:00 a.m.) Medical Necessity Reason Pt with a Central, PICC or Fol: No Subjective No new complaints, tolerating diet No further nausea and vomiting CT scan showed GERD gastric distention EGD showed 3 cm hiatal hernia and mild GERD and gastritis Liver enzymes are trending down MRCP showed small some 7 mm filling defect but liver enzymes trending down suggestive of passage of CBD stone vital signs Vital Sign Date Time Temp Pulse Resp B/P (MAP) Pulse Ox O2 Delivery O2 Flow Rate FiO2 01/16/25 17:00 98.3 59 18 132/65 (87) 95 98.3 01/16/25 08:00 Room Air* 0 21 Total Intake and Output 01/15/25 01/15/25 01/16/25 15:00 23:00 07:00 Intake Total 100 ml 350 ml 800 ml Balance 100 ml 350 ml 800 ml objective General Appearance: Alert, Oriented X3, Cooperative Lungs: Clear to auscultation, Normal air movement Cardiovascular: Regular rate, Normal S1, Normal S2 Abdomen: Normal bowel sounds, Soft, No tenderness Extremities: No edema; ambulatory laboratory and microbiology Laboratory Tests 01/16/25 05:12 Test 01/16/25 05:12 Range/Units Serum Glucose 222 H 74-106 mg/dL Problems(with codes): (1) Hiatal hernia with gastroesophageal reflux disease and esophagitis (2) Choledocholithiasis (3) Hepatic steatosis (4) Diabetes mellitus with hyperglycemia (5) Elevated liver enzymes (6) Generalized weakness (7) Transaminitis (8) Acute gastritis Prognosis Plan Liver enzymes continue to improve and resolve suggestive of passage of CBD stone Advance diet as tolerated Discharge planning is in progress Patient can follow up in my office as an outpatient Discharge home on PPI and advised a low-fat diet Plan discussed with: Other (Dr Coughlin) BLANKA PHAN MD Jan 16, 2025 21:47
== END 2025-01-16 18:05 | disposition home or self-care (01) | DRG 381 ==
LOC: ER 20:22 → OVERFLOW 01-12 02:42 → ER 01-12 02:45 → TELE-EAST 01-12 17:40
PROVIDERS: ADMIT Internal Medicine Geriatric Medicine; ATTEND Internal Medicine Geriatric Medicine
PROC: 0DB68ZX Excision of Stomach, Via Natural or Artificial Opening Endoscopic, Diagnostic (ICD-10-PCS; 2025-01-15)
PROC: 0DB48ZX Excision of Esophagogastric Junction, Via Natural or Artificial Opening Endoscopic, Diagnostic (ICD-10-PCS; 2025-01-15)
PROC: 0DB98ZX Excision of Duodenum, Via Natural or Artificial Opening Endoscopic, Diagnostic (ICD-10-PCS; principal; 2025-01-15 13:43)
DX: K22.10 Ulcer of esophagus without bleeding (principal); E87.0 Hyperosmolality and hypernatremia; I31.39 Other pericardial effusion (noninflammatory); K80.51 Calculus of bile duct without cholangitis or cholecystitis with obstruction; K76.0 Fatty (change of) liver, not elsewhere classified; E11.65 Type 2 diabetes mellitus with hyperglycemia; I10 Essential (primary) hypertension; E66.01 Morbid (severe) obesity due to excess calories; K29.00 Acute gastritis without bleeding; E78.2 Mixed hyperlipidemia; E87.6 Hypokalemia; K44.9 Diaphragmatic hernia without obstruction or gangrene; R74.01 Elevation of levels of liver transaminase levels; E83.42 Hypomagnesemia; K31.89 Other diseases of stomach and duodenum; K31.3 Pylorospasm, not elsewhere classified; K21.9 Gastro-esophageal reflux disease without esophagitis; Z87.442 Personal history of urinary calculi; Z90.49 Acquired absence of other specified parts of digestive tract; Z68.37 Body mass index [BMI] 37.0-37.9, adult; Z88.0 Allergy status to penicillin
CPT/HCPCS: 36415; 43239; 71045; 74176; 74181; 76705; 80048; 80053; 80061; 81001; 82728; 82962; 83605; 83690; 83735; 84443; 84484; 85025; 85610; 86038; 86704; 86706; 86708; 86803; 87040; 87340; 93005; 93306; G0378; J0696; J1100; J1815; J1885; J1956; J2250; J2405; J2470; J2704; J3480; J3490